=== PATIENT | female | born 1945 | race Caucasian/White ===

== ENCOUNTER 2023-12-20 06:17 | Emergency (ER) | payer MEDICARE, SELFPAY ==
[2023-12-20] VITALS (10 sets, daily range): BP systolic 115–214; BP diastolic 56–98; PULSE 63–90; RESP 12–20; TEMP 36.6–36.7; O2SAT 97–99; BMI 31.8
--- NOTE | 2023-12-20 06:35 | DI.RAD.S_ITS ---
PROCEDURE: XR CHEST 1V INDICATIONS: chest pain TECHNIQUE: One view of the chest was acquired. COMPARISON: None. FINDINGS: Surgical changes and devices: None. Lungs and pleura: Moderate size airspace opacity in right lower lung field is seen. No definite left-sided opacity. No pleural effusions or pneumothorax. Mediastinum: Mediastinal contours appear normal. Heart size is normal. Bones and chest wall: No suspicious bony lesions. Overlying soft tissues appear unremarkable. IMPRESSION: Finding is suggestive of moderate size right lower lobe infiltrate. No pleural effusion or pneumothorax. Dictated by: Patricio Galeano M.D. on 12/20/2023 at 8:08 Approved by: Patricio Galeano M.D. on 12/20/2023 at 8:09
[2023-12-20] MEDS: ASPIRIN 81 MG CHEW TAB 324 MG PO (06:43)
[2023-12-20 06:44] LABS: Add Manual Diff / Slide Review NO; Basophils Absolute Auto 100 /uL (0-100); Basophils Percent Auto 0.8 % (0-2); Eosinophils Absolute Auto 700 /uL (0-450); Eosinophils Percent Auto 10.9 % (2-4); Hematocrit 38.1 % (36-46); Hemoglobin 12.6 g/dL (12.0-16.0); Lymphocytes Absolute Auto 1500 /uL (1100-4500); Lymphocytes Percent Auto 22.4 % (25-40); Mean Corpuscular Hemoglobin 27.6 PG (26-34); Mean Corpuscular Volume 83.5 fL (80-100); Monocytes Absolute Auto 800 /uL (0-900); Monocytes Percent Auto 11.5 % (3-14); Neutrophils Absolute Auto 3600 /uL (1500-7000); Neutrophils Percent Auto 54.4 % (50-75); Platelet Count 196 X10^3/uL (150-400); Red Blood Cell Count 4.56 X10^6/uL (4.0-5.2); Red Cell Distribution Width 14.8 % (11.6-14.8); White Blood Cell Count 6.6 X10^3/uL (4.5-11.0)
[2023-12-20 06:47] LABS: Prothrombin Time 11.7 SECONDS (9.4-12.5)
[2023-12-20 06:50] LABS: PTT Partial Thromboplastin Tim 33 SECONDS (25.1-36.5)
[2023-12-20 06:59] LABS: Alanine Aminotransferase 16 IU/L (<35); Albumin 4.9 g/dL (3.5-5.0); Albumin Globulin Ratio 1.4 (1.0-2.8); Alkaline Phosphatase 64 U/L (38-126); Aspartate Aminotransferase 29 IU/L (14-36); BUN Creatinine Ratio 25.5 (6-22); Bilirubin Total 0.5 mg/dL (0.2-1.3); Blood Urea Nitrogen 26 mg/dL (7-17); Calcium 9.5 mg/dL (8.4-10.2); Carbon Dioxide 27 mmol/L (22-32); Chloride 103 mmol/L (98-107); Creatine Kinase 172 U/L (30-135); Estimated Glomerular Filt Rate 57 mL/min (>60); Globulin 3.6 g/dL (1.7-4.1); Glucose 110 mg/dL (80-110); HEMOLYSIS < 15 (0-50); Lipase 70 U/L (23-300); Magnesium 2.1 mg/dL (1.6-2.3); Potassium 3.5 mmol/L (3.4-5.1); Sodium 139 mmol/L (137-145); Total Protein 8.5 g/dL (6.3-8.2)
[2023-12-20 07:10] LABS: Troponin I < 0.012 ng/mL (0.01-0.034)
--- NOTE | 2023-12-20 07:17 | PC.NURSE ---
Pt reports feeling limp in arms after digesting food. Pt reports having 13 heart stents. Pt states she has taken omeprezole etc in the past to help with digestive issues. Pt reports having her gallbladder removed to help with her symptoms. 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 Pt reports the last time she was seen by GI and was fully evaluated was 3-4 years ago.
--- NOTE | 2023-12-20 07:19 | ED.CHESTPAIN ---
HPI - Chest Pain General Chief Complaint: Chest Pain Stated Complaint: chest pain Time Seen by Provider: 12/20/23 07:00 Source: patient Mode of arrival: Ambulatory History of Present Illness HPI narrative: Patient is a 78-year-old female. A known history of coronary artery disease. Has had multiple stents. States she has had a stress test in the past but that was many years ago. She states she has seen a Cardiology in the past but has not seen 1 currently. She states she has not interested in seeking any more treatment for her heart. She states ?when I I ? she states she was not interested in any further stress test. She is here because for the past several months/years she has had occasional chest discomfort approximately 1-1-1/2 hours after eating. She states that this chest discomfort has become more intense and lasting longer. She has to sleep sitting up at night because of the discomfort. States she does not eat all day because she was afraid that is going to hurt and then eats in the evening. When it does hurt it is a pressure in the middle of her chest. Does radiate down both of her arms. No shortness of breath. At the time of my evaluation she was not having discomfort. Related Data Home Medications Medication Instructions Recorded Confirmed albuterol sulfate 90 mcg/actuation 2 puff inhalation Q4H PRN 12/20/23 12/20/23 aerosol inhaler Shortness Of Breath clopidogrel 75 mg tablet 75 mg PO DAILY 12/20/23 12/20/23 rosuvastatin 40 mg tablet 40 mg PO ONCE PM 12/20/23 12/20/23 telmisartan 40 mg tablet 40 mg PO DAILY 12/20/23 12/20/23 triamterene 37.5 1 cap PO DAILY 12/20/23 12/20/23 mg-hydrochlorothiazide 25 mg capsule Allergies Allergy/AdvReac Type Severity Reaction Status Date / Time epinephrine Allergy Intermediate Hives Verified 12/20/23 06:28 Review of Systems Constitutional Constitutional: Reports system reviewed and no additional complaints, except as documented Cardiovascular Cardiovascular: Reports system reviewed and no additional complaints, except as documented Respiratory Respiratory: Reports system reviewed and no additional complaints, except as documented Gastrointestinal Gastrointestinal: Reports system reviewed and no additional complaints, except as documented Exam Initial Vital Signs Initial Vital Signs: Vital Signs Temperature 98.1 F 12/20/23 06:29 Pulse Rate 90 04/25/24 06:29 Respiratory Rate 20 12/20/23 06:29 Blood Pressure 214/98 H 12/20/23 06:29 Pulse Oximetry 98 12/20/23 06:29 Oxygen Delivery Method Room Air 12/20/23 06:29 Const General: cooperative, comfortable and No ill appearing HENMT Head: normal to inspection and normocephalic Resp Effort & Inspection: normal respiratory effort Auscultation: clear to auscultation bilaterally Cardio Rate: regular rate Rhythm: regular rhythm GI Inspection: normal to inspection and non-distended Skin General: no rashes or lesions noted Neuro General: patient alert, patient awake and moves all extremities Extrem General: capillary refill normal Course Orders Ordered: ED Orders 12/20/23 06:32 Complete Blood Count AUTO DIFF Stat PTT Partial Thromboplastin Neftaly Stat Prothrombin Time INR Stat 12/20/23 06:35 XR chest 1V Stat Comprehensive Metabolic Panel Stat Lipase Stat Magnesium Stat Troponin & CK Cardiac Panel Stat EKG-12 Lead Stat 12/20/23 08:26 Troponin & CK Cardiac Panel Stat Discontinued Medications Aspirin (Aspirin 81 Mg Chew Tab) 324 mg PO NOW ONE Stop: 12/20/23 06:36 Last Admin: 12/20/23 06:43 Dose: 324 mg Documented By: CHINTAN Aspirin (Aspirin 81 Mg Chew Tab) 324 mg PO NOW ONE Stop: 12/20/23 06:37 Last Admin: 12/20/23 06:41 Dose: Not Given Documented By: Vital Signs Vital signs: Vital Signs - 8 hr 12/20/23 06:29 Temperature 98.1 F Pulse Rate 90 Respiratory Rate 20 Blood Pressure 214/98 H Pulse Oximetry 98 Oxygen Delivery Method Room Air MDM - Chest Pain Lab Data Attestation: I reviewed the patient's lab results. 12/20/23 06:32 12/20/23 06:35 Labs: Lab Results 12/20/23 12/20/23 12/20/23 Range/Units 06:32 06:35 08:26 WBC 6.6 (4.5-11.0) X10^3/uL RBC 4.56 (4.0-5.2) X10^6/uL Hgb 12.6 (12.0-16.0) g/dL Hct 38.1 (36-46) % MCV 83.5 (80-100) fL MCH 27.6 (26-34) PG MCHC 33.0 (30-36) % RDW 14.8 (11.6-14.8) % Plt Count 196 (150-400) X10^3/uL Neut % (Auto) 54.4 (50-75) % Lymph % (Auto) 22.4 L (25-40) % [place] % (Auto) 11.5 (3-14) % Eos % (Auto) 10.9 H (2-4) % Baso % (Auto) 0.8 (0-2) % Neut # (Auto) 3600 (2331-1366) /uL Lymph # (Auto) 1500 (6741-4749) /uL [place] # (Auto) 800 (0-900) /uL Eos # (Auto) 700 H (0-450) /uL Baso # (Auto) 100 (0-100) /uL PT 11.7 (9.4-12.5) SECONDS INR 1.0 (0.9-1.3) APTT 33 (25.1-36.5) SECONDS Sodium Cancelled 139 Potassium Cancelled 3.5 Chloride Cancelled 103 Carbon Dioxide Cancelled 27 BUN Cancelled 26 H Creatinine Cancelled 1.02 Estimated GFR Cancelled 57 L BUN/Creatinine Ratio Cancelled 25.5 H Glucose Cancelled 110 Calcium Cancelled 9.5 Magnesium 2.1 (1.6-2.3) mg/dL Total Bilirubin Cancelled 0.5 AST Cancelled 29 ALT Cancelled 16 Alkaline Phosphatase Cancelled 64 Total Creatine Kinase Cancelled 172 H 154 H Troponin I Cancelled < 0.012 < 0.012 Total Protein Cancelled 8.5 H Albumin Cancelled 4.9 Globulin Cancelled 3.6 Albumin/Globulin Ratio Cancelled 1.4 Lipase Cancelled 70 Imaging Data Chest x-ray: Radiologist's Impression: PROCEDURE: XR CHEST 1V INDICATIONS: chest pain TECHNIQUE: One view of the chest was acquired. COMPARISON: None. FINDINGS: Surgical changes and devices: None. Lungs and pleura: Moderate size airspace opacity in right lower lung field is seen. No definite left-sided opacity. No pleural effusions or pneumothorax. Mediastinum: Mediastinal contours appear normal. Heart size is normal. Bones and chest wall: No suspicious bony lesions. Overlying soft tissues appear unremarkable. IMPRESSION: Finding is suggestive of moderate size right lower lobe infiltrate. No pleural effusion or pneumothorax. ECG Data Attestation: I personally reviewed and interpreted this ECG as follows: Interpretation: Sinus rhythm Ventricular rate 80 Normal axis Normal QRS Nonspecific ST T wave changes MDM Narrative Medical decision making narrative: Patient has had 2- troponins. She has had discomfort like this off and on for years now. It seems to be associated with eating. I suspect that this is more of a GI source rather than a cardiac source. Patient states she actually does not want anymore workup of her heart to include stress testing or other invasive procedures. Recommended that the patient start on a proton pump inhibitor. She may need to see General surgery for evaluation of an upper endoscopy. Will discharge patient home with return precautions. She expressed understanding and agreement. Discharge Plan Departure Patient Disposition: Home Clinical Impression: Atypical chest pain Instructions: DI for Atypical Chest Pain Activity Restrictions/Additional Instructions: I do recommend that you start taking a class of medicine called a proton pump inhibitor. Examples of these include omeprazole/esomeprazole. I also recommend that you contact the General surgery Department of the number provided below. Return to the emergency department for new symptoms. Prescriptions: No Action clopidogrel 75 mg tablet 75 mg PO DAILY albuterol sulfate 90 mcg/actuation HFA aerosol inhaler 2 puff inhalation Q4H PRN (Reason: Shortness Of Breath) rosuvastatin 40 mg tablet 40 mg PO ONCE PM telmisartan 40 mg tablet 40 mg PO DAILY triamterene-hydrochlorothiazid 37.5-25 mg capsule 1 cap PO DAILY Referrals: Mari Sánchez ARNP [Primary Care Provider] - Sanjay Dickens MD [Physician] - Stand Alone Forms: Patient Portal/API
[2023-12-20 08:45] LABS: Creatine Kinase 154 U/L (30-135)
[2023-12-20 08:58] LABS: Troponin I < 0.012 ng/mL (0.01-0.034)
== END 2023-12-20 09:38 | disposition home or self-care (01) ==
PROVIDERS: Emergency Medicine; Emergency Provider Emergency Medicine; PCP Nurse Practitioner
DX: R07.89 Other chest pain (principal)
CPT/HCPCS: 71045; 80053; 82550; 83690; 83735; 84484; 85025; 85610; 85730; 93005; 99283; 99284

== ENCOUNTER 2024-01-22 19:43 | Emergency (ER) | payer MEDICARE, SELFPAY ==
[2024-01-22 19:52] VITALS: BP 164/77; PULSE 65; RESP 18; TEMP 37; O2SAT 97; BMI 30.8
--- NOTE | 2024-01-22 19:52 | DI.US.S_ITS ---
PROCEDURE: US ARTERIAL DUPLEX LE LT INDICATIONS: bleeding from cath site L groin TECHNIQUE: Color and pulse Doppler interrogation was performed of the right groin , with image documentation. COMPARISON: None. FINDINGS: Examination of right inguinal region at left femoral catheterize insertion site shows no hematoma or pseudoaneurysm formation. No solid mass. Soft tissue edema is seen. IMPRESSION: No large hematoma or pseudoaneurysm is seen in left inguinal region. Dictated by: Patricio Galeano M.D. on 01/22/2024 at 21:54 Approved by: Patricio Galeano M.D. on 01/22/2024 at 21:56
--- NOTE | 2024-01-22 19:56 | ED.GENADULT ---
HPI - General Adult General Chief complaint: Wound/Laceration Stated complaint: Scab popped Bleeding Time Seen by Provider: 01/22/24 19:47 History of Present Illness HPI narrative: 78-year-old female presents for blood noted around her catheterization site. Approximately 1 week ago patient underwent angiography and catheterization with 4 stents placed at [facility]. She states that she was recovering well in sent home. Today she was changing her dressing and noticed blood on the bandage. She became very concerned that the presence of blood and called 911. Patient was on aspirin and Plavix, denies use of other blood thinners Related Data Home Medications Medication Instructions Recorded Confirmed albuterol sulfate 90 mcg/actuation 2 puff inhalation Q4H PRN 12/20/23 12/20/23 aerosol inhaler Shortness Of Breath clopidogrel 75 mg tablet 75 mg PO DAILY 12/20/23 12/20/23 rosuvastatin 40 mg tablet 40 mg PO ONCE PM 12/20/23 12/20/23 telmisartan 40 mg tablet 40 mg PO DAILY 12/20/23 12/20/23 triamterene 37.5 1 cap PO DAILY 12/20/23 12/20/23 mg-hydrochlorothiazide 25 mg capsule Allergies Allergy/AdvReac Type Severity Reaction Status Date / Time epinephrine Allergy Intermediate Hives Verified 12/20/23 06:28 Review of Systems Review of Systems Narrative: See HPI Patient History Social History Smoking Status: Never smoker Exam Initial Vital Signs Initial Vital Signs: Vital Signs Temperature 98.6 F 01/22/24 19:52 Pulse Rate 65 01/22/24 19:52 Respiratory Rate 18 01/22/24 19:52 Blood Pressure 164/77 H 01/22/24 19:52 Pulse Oximetry 97 01/22/24 19:52 Oxygen Delivery Method Room Air 01/22/24 19:52 Const: Awake, alert, no acute distress, nontoxic appearing Cardiac: regular rate, regular rhythm RESP: unlabored, clear bilaterally, no wheezing MSK: no palpable swelling, no bruit L thigh Skin: scant dried blood at L femoral catheterization site. No active bleeding Neuro: AO x3, CN II-XII grossly intact, moves all extremities Course Orders Ordered: ED Orders 01/22/24 19:52 US arterial duplex LE LT Stat Vital Signs Vital signs: Vital Signs - 8 hr 01/22/24 20:27 01/22/24 20:30 01/22/24 20:41 Pulse Rate 65 66 Respiratory Rate 20 Blood Pressure 139/63 Pulse Oximetry 97 97 Oxygen Delivery Method Room Air Room Air 01/22/24 20:41 01/22/24 21:55 01/22/24 22:04 Pulse Rate 78 72 Respiratory Rate 18 16 Blood Pressure 137/60 Pulse Oximetry 97 96 97 Oxygen Delivery Method Room Air Room Air Medical Decision Making Imaging Data US - DVT: Radiologist's Impression: PROCEDURE: US ARTERIAL DUPLEX LE LT INDICATIONS: bleeding from cath site L groin TECHNIQUE: Color and pulse Doppler interrogation was performed of the right groin , with image documentation. COMPARISON: None. FINDINGS: Examination of right inguinal region at left femoral catheterize insertion site shows no hematoma or pseudoaneurysm formation. No solid mass. Soft tissue edema is seen. IMPRESSION: No large hematoma or pseudoaneurysm is seen in left inguinal region. Dictated by: Patricio Galeano M.D. on 01/22/2024 at 21:54 Approved by: Patricio Galeano M.D. on 01/22/2024 at 21:56 MDM Narrative Additional Information: Bleeding from previous cardiac catheterization site in left groin. Band-Aid removed, there is scant dried blood noted, but no active bleeding. Patient may have disrupted a scab. Ultrasound ordered to ensure that there was no pseudoaneurysm present. Ultrasound negative for hematoma or pseudoaneurysm. Dressing applied. Wound care instructions discussed with the patient. Cardiology follow up instructed. Discharge Plan Departure Patient Disposition: Home Clinical Impression: Bleeding Instructions: DI for Puncture Wound Activity Restrictions/Additional Instructions: Continue to keep your wound clean and dry. You may replace the bandage daily. 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 Your ultrasound did not show any signs of swelling or abnormal blood collection. Prescriptions: No Action clopidogrel 75 mg tablet 75 mg PO DAILY albuterol sulfate 90 mcg/actuation HFA aerosol inhaler 2 puff inhalation Q4H PRN (Reason: Shortness Of Breath) rosuvastatin 40 mg tablet 40 mg PO ONCE PM telmisartan 40 mg tablet 40 mg PO DAILY triamterene-hydrochlorothiazid 37.5-25 mg capsule 1 cap PO DAILY Referrals: Sánchez,Mari S, REAL ESTATE LEASING MANAGER [Primary Care Provider] - Stand Alone Forms: Patient Portal/API
[2024-01-22 20:27] VITALS: PULSE 65; O2SAT 97
[2024-01-22 20:30] VITALS: PULSE 66; RESP 20; O2SAT 97
[2024-01-22 20:41] VITALS: BP 139/63; PULSE 78; RESP 18; O2SAT 97
[2024-01-22 21:55] VITALS: O2SAT 96
[2024-01-22 22:04] VITALS: BP 137/60; PULSE 72; RESP 16; O2SAT 97
== END 2024-01-22 22:05 | disposition home or self-care (01) ==
PROVIDERS: Emergency Provider Emergency Medicine; PCP Nurse Practitioner
DX: L76.22 Postprocedural hemorrhage of skin and subcutaneous tissue following other procedure (principal)
CPT/HCPCS: 93926; 99281; 99282

== ENCOUNTER 2024-01-29 13:04 | Emergency (ER) | payer MEDICARE, SELFPAY ==
[2024-01-29] VITALS (18 sets, daily range): BP systolic 143–219; BP diastolic 65–93; PULSE 61–88; RESP 16–33; TEMP 36.6–37.2; O2SAT 91–100; BMI 33.0
--- NOTE | 2024-01-29 13:11 | DI.RAD.S_ITS ---
PROCEDURE: XR CHEST 1V INDICATIONS: Shortness of breath TECHNIQUE: One view of the chest was acquired. COMPARISON: [facility], CT, CT ANGIO AORTA RUNOFF, 02/14/2023, 13:29. [facility], CR, XR CHEST 1V, 12/20/2023, 7:17. FINDINGS: Surgical changes and devices: None. Lungs and pleura: Low lung volumes. 5.2 cm right mid lung. No pleural effusions. Mild right lower lung opacity. Mediastinum: Normal heart size Bones and chest wall: Degenerative changes. IMPRESSION: Right mid lung 5.2 cm mass. Recommend chest CT. Right lower lobe opacity may be additional infection/inflammation versus atelectasis. Dictated by: Juanjo Peñaloza M.D. on 01/29/2024 at 14:33 Approved by: Juanjo Peñaloza M.D. on 01/29/2024 at 14:36
[2024-01-29 13:43] LABS: Add Manual Diff / Slide Review NO; Basophils Absolute Auto 100 /uL (0-100); Basophils Percent Auto 0.9 % (0-2); Eosinophils Absolute Auto 1200 /uL (0-450); Hematocrit 33.8 % (36-46); Lymphocytes Absolute Auto 1100 /uL (1100-4500); Lymphocytes Percent Auto 11.2 % (25-40); Mean Corpuscular HGB Conc 32.5 % (30-36); Mean Corpuscular Hemoglobin 27.6 PG (26-34); Mean Corpuscular Volume 84.9 fL (80-100); Monocytes Absolute Auto 800 /uL (0-900); Monocytes Percent Auto 8.1 % (3-14); Neutrophils Absolute Auto 6700 /uL (1500-7000); Neutrophils Percent Auto 67.8 % (50-75); Platelet Count 227 X10^3/uL (150-400); Red Blood Cell Count 3.98 X10^6/uL (4.0-5.2); Red Cell Distribution Width 14.9 % (11.6-14.8); White Blood Cell Count 9.9 X10^3/uL (4.5-11.0)
[2024-01-29 13:54] LABS: INR 1.2 (0.9-1.3); Prothrombin Time 13.4 SECONDS (9.4-12.5)
--- NOTE | 2024-01-29 14:08 | ED.SOB ---
HPI - SOB/Dyspnea General Chief Complaint: Shortness of Breath/Dyspnea Stated Complaint: SOB Time Seen by Provider: 01/29/24 13:34 Source: patient Mode of arrival: Ambulatory History of Present Illness HPI Narrative: 78-year-old female with history of CAD, recent non-STEMI last month, was advised to have CABG which was declined, underwent high risk PCI by her report x4 vessels done by Dr. Crump at [facility], was discharged on 01/20/2024, has felt some shortness of breath persisting since that time, no cough, no fevers chills. Denies chest discomfort, taking same clopidogrel anticoagulant, denies pain to either leg, slight swelling swelling to both legs. No history of known blood clots to legs or lungs. No known exposure to persons with known COVID or influenza. Related Data Home Medications Medication Instructions Recorded Confirmed aspirin 81 mg tablet,delayed 81 mg PO DAILY 01/29/24 01/29/24 release carvedilol 6.25 mg tablet 6.25 mg PO BID 01/29/24 01/29/24 clopidogrel 75 mg tablet 75 mg PO DAILY 01/29/24 01/29/24 lutein 25 mg-zeaxanthin 5 mg 1 cap PO DAILY 01/29/24 01/29/24 capsule rosuvastatin 40 mg tablet 40 mg PO ONCE PM 01/29/24 01/29/24 telmisartan 40 mg tablet 40 mg PO DAILY 01/29/24 01/29/24 triamterene 37.5 1 cap PO DAILY 01/29/24 01/29/24 mg-hydrochlorothiazide 25 mg capsule Previous Rx's Medication Instructions Recorded furosemide 20 mg tablet (Lasix) 20 mg PO DAILY #5 tabs 01/29/24 Allergies Allergy/AdvReac Type Severity Reaction Status Date / Time epinephrine Allergy Intermediate Hives Verified 01/29/24 13:11 Review of Systems Review of Systems Narrative: As per HPI Patient History Social History Smoking Status: Never smoker Smoking Status: Never smoker Substance Use Type: does not use Exam Narrative Exam Narrative: GENERAL: Well-developed patient, in mild distress. HEAD: Atraumatic. Normocephalic. EYES: Pupils equal round and reactive. Extraocular motions intact. No scleral icterus. No injection or drainage. ENT: Nose without bleeding, purulent drainage. Throat without erythema, tonsillar hypertrophy or exudate. Airway patent. NECK: Trachea midline. Non tender CARDIOVASCULAR: Regular rate and rhythm without murmurs, gallops, or rubs. RESPIRATORY: Clear to auscultation. Breath sounds equal bilaterally. No wheezes, rales, or rhonchi. GASTROINTESTINAL: Abdomen soft, non-tender, nondistended. EXTREMITIES: No edema or joint tenderness. BACK: Nontender without deformity or crepitance. No flank tenderness. NEURO: AOx3. No gross motor defect, no facial droop, has clear speech. SKIN: No rash or erythema of visible areas Initial Vital Signs Initial Vital Signs: Vital Signs Temperature 97.8 F 01/29/24 13:07 Pulse Rate 71 01/29/24 13:07 Respiratory Rate 20 01/29/24 13:07 Blood Pressure 185/79 H 01/29/24 13:07 Pulse Oximetry 97 01/29/24 13:07 Oxygen Delivery Method Room Air 01/29/24 13:07 Course Orders Ordered: ED Orders 01/29/24 13:11 XR chest 1V Stat EKG-12 Lead Stat Measure peak expiratory flow ONCE RT Consult Eval and Treat NOW 01/29/24 13:32 Complete Blood Count AUTO DIFF Stat Comprehensive Metabolic Panel Stat Lactate (Lactic Acid) Stat NT-proBNP (BNP-Adult 18+) Stat Prothrombin Time INR Stat Troponin I Stat 01/29/24 13:53 Respiratory Panel (Film Array) Stat 01/29/24 15:17 CT angio chest PE protocol Stat 01/29/24 17:28 Trop I [Troponin I] Stat Discontinued Medications Albuterol (Albuterol 2.5 Mg/3 Ml Neb (Adult)) 2.5 mg INH NOW ONE Stop: 01/29/24 14:50 Last Admin: 01/29/24 15:08 Dose: 2.5 mg Documented By: CHAPO Furosemide (Furosemide 40 Mg/4 Ml Vial) 40 mg IV NOW ONE Stop: 01/29/24 15:18 Last Admin: 01/29/24 15:38 Dose: 40 mg Documented By: RL Vital Signs Vital signs: Vital Signs - 8 hr 01/29/24 13:07 01/29/24 13:23 01/29/24 13:30 Temperature 97.8 F Pulse Rate 71 86 67 Respiratory Rate 20 25 H 25 H Blood Pressure 185/79 H Pulse Oximetry 97 97 97 Oxygen Delivery Method Room Air 01/29/24 13:42 01/29/24 13:42 01/29/24 13:45 Temperature Pulse Rate 67 Respiratory Rate 21 Blood Pressure 202/91 H 190/82 H Pulse Oximetry 99 Oxygen Delivery Method 01/29/24 13:45 01/29/24 14:00 01/29/24 14:00 Temperature Pulse Rate 66 65 Respiratory Rate 21 17 Blood Pressure 192/80 H Pulse Oximetry 100 100 Oxygen Delivery Method 01/29/24 14:15 01/29/24 14:15 01/29/24 14:30 Temperature Pulse Rate 67 66 Respiratory Rate 28 H 21 Blood Pressure 199/83 H Pulse Oximetry 96 96 Oxygen Delivery Method 01/29/24 14:31 01/29/24 14:31 01/29/24 14:45 Temperature Pulse Rate 67 Respiratory Rate 23 Blood Pressure 184/74 H 195/79 H Pulse Oximetry 96 Oxygen Delivery Method 01/29/24 14:45 01/29/24 15:00 01/29/24 15:00 Temperature Pulse Rate 67 66 Respiratory Rate 28 H 19 Blood Pressure 178/78 H Pulse Oximetry 95 95 Oxygen Delivery Method 01/29/24 15:15 01/29/24 15:15 01/29/24 17:19 Temperature Pulse Rate 61 88 Respiratory Rate 17 Blood Pressure 219/82 H Pulse Oximetry 100 91 Oxygen Delivery Method 01/29/24 17:21 01/29/24 17:21 01/29/24 17:30 Temperature Pulse Rate 70 69 Respiratory Rate 28 H 28 H Blood Pressure 161/93 H Pulse Oximetry 94 96 Oxygen Delivery Method 01/29/24 17:30 01/29/24 17:45 01/29/24 17:45 Temperature Pulse Rate 68 Respiratory Rate 16 Blood Pressure 143/65 H 152/67 H Pulse Oximetry 97 Oxygen Delivery Method 01/29/24 18:00 01/29/24 18:42 Temperature 98.9 F Pulse Rate 81 Respiratory Rate 33 H Blood Pressure Pulse Oximetry Oxygen Delivery Method MDM - SOB/Dyspnea Lab Data Attestation: I reviewed the patient's lab results. 01/29/24 13:32 01/29/24 13:32 Labs: Lab Results 01/29/24 01/29/24 01/29/24 Range/Units 13:32 13:53 17:28 WBC 9.9 (4.5-11.0) X10^3/uL RBC 3.98 L (4.0-5.2) X10^6/uL Hgb 11.0 L (12.0-16.0) g/dL Hct 33.8 L (36-46) % MCV 84.9 (80-100) fL MCH 27.6 (26-34) PG MCHC 32.5 (30-36) % RDW 14.9 H (11.6-14.8) % Plt Count 227 (150-400) X10^3/uL Neut % (Auto) 67.8 (50-75) % Lymph % (Auto) 11.2 L (25-40) % [place] % (Auto) 8.1 (3-14) % Eos % (Auto) 12.0 H (2-4) % Baso % (Auto) 0.9 (0-2) % Neut # (Auto) 6700 (3677-4313) /uL Lymph # (Auto) 1100 (6647-6513) /uL [place] # (Auto) 800 (0-900) /uL Eos # (Auto) 1200 H (0-450) /uL Baso # (Auto) 100 (0-100) /uL PT 13.4 H (9.4-12.5) SECONDS INR 1.2 (0.9-1.3) Sodium 140 (137-145) mmol/L Potassium 3.9 (3.4-5.1) mmol/L Chloride 105 (98-107) mmol/L Carbon Dioxide 29 (22-32) mmol/L BUN 13 (7-17) mg/dL Creatinine 0.77 (0.52-1.04) mg/dL Estimated GFR > 60 (>60) mL/min BUN/Creatinine Ratio 16.9 (6-22) Glucose 99 (80-110) mg/dL Lactate 1.0 (0.7-2.1) mmol/L Calcium 9.3 (8.4-10.2) mg/dL Total Bilirubin 0.8 (0.2-1.3) mg/dL AST 24 (14-36) IU/L ALT 16 (<35) IU/L Alkaline Phosphatase 67 (38-126) U/L Troponin I 0.019 0.019 (0.01-0.034) ng/mL NT-Pro-B Natriuret Pep 1360 H (<450) pg/mL Total Protein 7.9 (6.3-8.2) g/dL Albumin 4.5 (3.5-5.0) g/dL Globulin 3.4 (1.7-4.1) g/dL Albumin/Globulin Ratio 1.3 (1.0-2.8) Chlamy pneumoniae PCR Not detected (Not Detect) Adenovirus (PCR) Not detected (Not Detect) B.parapertussis DNA PCR Not detected (Not Detecte) Coronavirus OC43 (PCR) Not detected (Not Detect) Coronavirus HKU1 (PCR) Not detected (Not Detect) Coronavirus 229E (PCR) Not detected (Not Detect) SARS-CoV-2 (PCR) Not detected (Not Detecte) Coronavirus NL63 (PCR) Not detected (Not Detect) Human Metapneumovir PCR Not detected (Not Detect) Influenza Type A (PCR) Not detected (Not Detect) Influenza Type B (PCR) Not detected (Not Detect) M. pneumoniae (PCR) Not detected (Not Detect) Parainfluenza 1 (PCR) Not detected (Not Detect) Parainfluenza 2 (PCR) Not detected (Not Detect) Parainfluenza 3 (PCR) Not detected (Not Detect) Parainfluenza 4 (PCR) Not detected (Not Detect) RSV (PCR) Not detected (Not Detect) Entero/Rhino (PCR) Not detected (Not Detect) Urine Dip Bedside Urine Glucose Negative Bedside Urine Bilirubin - Negative Bedside Urine Ketone - Negative Urine Specific [place] 1.015 Bedside Urine Occult Blood - Negative Bedside Urine pH 6.0 Bedside Urine Protein - Negative Bedside Urine Urobilinogen - Negative Bedside Urine Nitrite - Negative Bedside Urine Leukocytes - Negative Esterase Imaging Data CT Angio Chest: Radiologist's Impression: [address] [address] [address] Scan Report Signed Patient: Debi Nuñez MR#: [id number] : 1945 Acct:[id number] Age/Sex: 78 / F Date of Service: 01/29/24 Loc: ED Accession Number: [id number] Procedure: CT angio chest PE protocol Ordering Provider: Syd Mckeon MD PROCEDURE: CT ANGIO CHEST PE PROTOCOL INDICATIONS: dyspnea, recent stents x4 TECHNIQUE: After the administration of intravenous contrast, 2 mm thick sections acquired from the pulmonary apices to the posterior costophrenic angles. 3-dimensional maximum intensity projection (MIP) coronal and sagittal reformats were then acquired through the thorax. For radiation dose reduction, the following was used: automated exposure control, adjustment of mA and/or kV according to patient size. COMPARISON: [facility], CR, XR CHEST 1V, 12/20/2023, 7:17. FINDINGS: Image quality: Diagnostic Lungs and pleura: Mild bilateral effusions. There is scattered mild opacities. Mass in the right middle lobe measuring up to 4.1 cm. On radiography from November, this was also present. Mediastinum, heart, and esophagus: No acute pulmonary embolism. There are coronary calcifications and stents. Mildly enlarged hilar and mediastinal lymph nodes, for example subcarinal node measures 1.4 cm in short axis. Chest wall and thyroid: Unremarkable chest wall thyroid Upper abdomen: Possible renal cysts of varying densities. No gross abnormality otherwise on these arterial phase images. Bones: Degenerative osseous findings. IMPRESSION: No acute pulmonary embolism. Right middle lobe suspicious mass is confirmed on CT. There are mildly enlarged mediastinal and hilar lymph nodes. Consider sampling and/or PET-CT. Small bilateral pleural effusions. Other findings above. Dictated by: Juanjo Peñaloza M.D. on 01/29/2024 at 15:44 Approved by: Juanjo Peñaloza M.D. on 01/29/2024 at 15:49 ECG Data Attestation: I personally reviewed and interpreted this ECG as follows: Interpretation: Normal sinus rhythm with rate of 69, no obvious ST segment elevation or depression changes. SD 178, QRS 78, QTC 435. [facility] Narrative Medical decision making narrative: 78-year-old female status post 4 vessel stenting last month Garret Harrison, now with shortness of breath since discharge on 01/20/2024, was concerned because of shortness a breath was persisting, not particularly worse tonight. Lungs clear, speaks in full sentences, no lower extremity edema, no leg pain or tenderness. Screening EKG without obvious ischemic changes at this time. Initial troponin negative. Chest x-ray unremarkable. Trial of SVN. If GFR favorable consider CTA chest imaging. Troponin 0.019, we will repeat interval study. Creatinine favorable. CTA chest study requested. Respiratory panel negative. Repeat troponin 0.019 unchanged. BNP elevated, patient was given 40 mg IV Lasix, has had more than 1 L out, blood pressure a little lower, feels better. Patient would like to go home. 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 We will give Lasix daily dose for the next few days until that visit. Return precautions discussed. Critical Care Time Critical Care Time Total Critical Care Time: 35 Attestation: The high probability of a clinically significant, sudden or life threatening deterioration of the [cardiopulmonary] system(s) required my full and direct attention, intervention and personal management. The aggregate critical care time was [35] minutes. This time is in addition to time spent performing reported procedures but includes the following: [x] Data Review and interpretation [x] Patient assessment and monitoring of vital signs [x] Documentation [x] Medication orders and management Discharge Plan Departure Patient Disposition: Home Clinical Impression: Dyspnea, Lung mass, Congestive heart failure Instructions: DI for Heart Failure Activity Restrictions/Additional Instructions: Recent cardiac stenting for non ST elevation myocardial infarction, having declined open bypass graft surgery. Some shortness of breath since that procedure, persisted today. EKG and serial blood tests not suggestive of heart attack at this time. BNP blood test elevated, possible fluid overload, might be related to your shortness of breath, IV Lasix dose given, you are able to urinate considerable amount of fluid can felt better. It is possible you might have had some degree of congestive heart failure due to your recent heart attack, and/or be mobilizing IV fluids from that procedure. Take oral Lasix once daily dose for the next few days, prior to your cardiology appointment this Sunday as scheduled. Return to this/nearest emergency department for any change worsening symptoms or any concerns prior Right lung mass also noted, apparently known, seen in the past and on chest x-ray and CT chest scanning noted, further workup as an outpatient for now. Prescriptions: New furosemide [Lasix] 20 mg tablet 20 mg PO DAILY Qty: 5 0RF No Action carvedilol 6.25 mg tablet 6.25 mg PO BID clopidogrel 75 mg tablet 75 mg PO DAILY aspirin [Aspir-81] 81 mg Tablet,Delayed Release (Dr/Ec) 81 mg PO DAILY triamterene-hydrochlorothiazid 37.5-25 mg capsule 1 cap PO DAILY telmisartan 40 mg tablet 40 mg PO DAILY rosuvastatin 40 mg tablet 40 mg PO ONCE PM lutein-zeaxanthin 25-5 mg Capsule 1 cap PO DAILY Referrals: Mari Sánchez ARNP [Primary Care Provider] - Stand Alone Forms: Patient Portal/API
[2024-01-29 14:09] LABS: Alanine Aminotransferase 16 IU/L (<35); Albumin 4.5 g/dL (3.5-5.0); Albumin Globulin Ratio 1.3 (1.0-2.8); Alkaline Phosphatase 67 U/L (38-126); Aspartate Aminotransferase 24 IU/L (14-36); BUN Creatinine Ratio 16.9 (6-22); Bilirubin Total 0.8 mg/dL (0.2-1.3); Blood Urea Nitrogen 13 mg/dL (7-17); Calcium 9.3 mg/dL (8.4-10.2); Carbon Dioxide 29 mmol/L (22-32); Chloride 105 mmol/L (98-107); Estimated Glomerular Filt Rate > 60 mL/min (>60); Globulin 3.4 g/dL (1.7-4.1); Glucose 99 mg/dL (80-110); HEMOLYSIS < 15 (0-50); Potassium 3.9 mmol/L (3.4-5.1); Sodium 140 mmol/L (137-145); Total Protein 7.9 g/dL (6.3-8.2)
[2024-01-29 14:19] LABS: NT-proBNP (BNP-Adult 18+) 1360 pg/mL (<450); Troponin I 0.019 ng/mL (0.01-0.034)
[2024-01-29] MEDS: ALBUTEROL 2.5 MG/3 ML NEB (ADULT) INH (15:08)
[2024-01-29 15:09] LABS: Adenovirus Not Detected (Not Detect); B. parapertussis Not Detected (Not Detecte); Bordetella pertussis Not Detected (Not Detect); Chlamydophila pneumoniae Not Detected (Not Detect); Coronavirus 229E Not Detected (Not Detect); Coronavirus HKU1 Not Detected (Not Detect); Coronavirus NL 63 Not Detected (Not Detect); Coronavirus OC43 Not Detected (Not Detect); Human Metapneumovirus Not Detected (Not Detect); Human Rhinovirus/Enterovirus Not Detected (Not Detect); Influenza A Not Detected (Not Detect); Influenza B Not Detected (Not Detect); Mycoplasma pneumoniae Not Detected (Not Detect); Parainfluenza Virus 1 Not Detected (Not Detect); Parainfluenza Virus 2 Not Detected (Not Detect); Parainfluenza Virus 3 Not Detected (Not Detect); Parainfluenza Virus 4 Not Detected (Not Detect); Respiratory Syncytial Virus Not Detected (Not Detect); SARS- CoV-2 Not Detected (Not Detecte)
--- NOTE | 2024-01-29 15:17 | DI.CT.S_ITS ---
PROCEDURE: CT ANGIO CHEST PE PROTOCOL INDICATIONS: dyspnea, recent stents x4 TECHNIQUE: After the administration of intravenous contrast, 2 mm thick sections acquired from the pulmonary apices to the posterior costophrenic angles. 3-dimensional maximum intensity projection (MIP) coronal and sagittal reformats were then acquired through the thorax. For radiation dose reduction, the following was used: automated exposure control, adjustment of mA and/or kV according to patient size. COMPARISON: [facility], CR, XR CHEST 1V, 12/20/2023, 7:17. FINDINGS: Image quality: Diagnostic Lungs and pleura: Mild bilateral effusions. There is scattered mild opacities. Mass in the right middle lobe measuring up to 4.1 cm. On radiography from November, this was also present. Mediastinum, heart, and esophagus: No acute pulmonary embolism. There are coronary calcifications and stents. Mildly enlarged hilar and mediastinal lymph nodes, for example subcarinal node measures 1.4 cm in short axis. Chest wall and thyroid: Unremarkable chest wall thyroid Upper abdomen: Possible renal cysts of varying densities. No gross abnormality otherwise on these arterial phase images. Bones: Degenerative osseous findings. IMPRESSION: No acute pulmonary embolism. Right middle lobe suspicious mass is confirmed on CT. There are mildly enlarged mediastinal and hilar lymph nodes. Consider sampling and/or PET-CT. Small bilateral pleural effusions. Other findings above. Dictated by: Juanjo Peñaloza M.D. on 01/29/2024 at 15:44 Approved by: Juanjo Peñaloza M.D. on 01/29/2024 at 15:49
[2024-01-29] MEDS: FUROSEMIDE 40 MG/4 ML VIAL IV (15:38)
[2024-01-29 17:59] LABS: Troponin I 0.019 ng/mL (0.01-0.034)
== END 2024-01-29 18:43 | disposition home or self-care (01) ==
PROVIDERS: Emergency Provider Emergency Medicine; PCP Nurse Practitioner
DX: R06.00 Dyspnea, unspecified (principal); I50.9 Heart failure, unspecified; R91.8 Other nonspecific abnormal finding of lung field; Z20.822 Contact with and (suspected) exposure to COVID-19; I25.2 Old myocardial infarction; Z79.01 Long term (current) use of anticoagulants
CPT/HCPCS: 36415; 71045; 71275; 80053; 81003; 83605; 83880; 84484; 85025; 85610; 87633; 93005; 96374; 99285; J1940; J7613; Q9967

== ENCOUNTER 2024-02-10 08:27 | Emergency (ER) | payer MEDICARE, SELFPAY ==
[2024-02-10] VITALS (19 sets, daily range): BP systolic 151–230; BP diastolic 67–91; PULSE 65–77; RESP 16–29; TEMP 36.7; O2SAT 94–98; BMI 31.6
--- NOTE | 2024-02-10 08:39 | EKG_ITS ---
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
--- NOTE | 2024-02-10 08:39 | ED_ITS ---
HPI - SOB/Dyspnea General Chief Complaint: Shortness of Breath/Dyspnea Stated Complaint: sob Time Seen by Provider: 02/10/24 08:27 Source: patient Mode of arrival: Ambulatory Limitations: no limitations History of Present Illness HPI Narrative: 78-year-old female with history of coronary artery disease status post 4-vessel PCI 1 month prior (week of 01/15/24) presents for shortness of breath. Patient states she has felt short of breath since her stenting at [facility]. On 01/29/2024 patient came to the emergency department for shortness of breath and was given a diagnosis of congestive heart failure. She was discharged with Lasix, which she states she has been compliant on since her discharge from the emergency department. At that time she was also noted to have a right middle lobe mass. Patient states that this mass has been followed up by her jukebox route driver at an outside hospital extensively and has been biopsied. 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 Patient states that this morning she took an extra dose of her Lasix to try and get fluid off of her. Reports a minimal amount of left ankle swelling. She states that she has been compliant with her salt and fluid intake restrictions. Related Data Home Medications Medication Instructions Recorded Confirmed aspirin 81 mg tablet,delayed 81 mg PO DAILY 01/29/24 01/29/24 release carvedilol 6.25 mg tablet 6.25 mg PO BID 01/29/24 01/29/24 clopidogrel 75 mg tablet 75 mg PO DAILY 01/29/24 01/29/24 lutein 25 mg-zeaxanthin 5 mg 1 cap PO DAILY 01/29/24 01/29/24 capsule rosuvastatin 40 mg tablet 40 mg PO ONCE PM 01/29/24 01/29/24 telmisartan 40 mg tablet 40 mg PO DAILY 01/29/24 01/29/24 triamterene 37.5 1 cap PO DAILY 01/29/24 01/29/24 mg-hydrochlorothiazide 25 mg capsule Previous Rx's Medication Instructions Recorded furosemide 20 mg tablet (Lasix) 20 mg PO DAILY #5 tabs 01/29/24 lorazepam 0.5 mg tablet 0.5 mg PO DAILY PRN anxiety #10 02/10/24 tabs albuterol sulfate 90 mcg/actuation 2 puff inhalation Q4-6H PRN 02/11/24 aerosol inhaler shortness of breath or wheezing #8.5 grams prednisone 20 mg tablet 40 mg (2 x 20 mg) PO DAILY #10 tabs 02/11/24 Allergies Allergy/AdvReac Type Severity Reaction Status Date / Time epinephrine Allergy Intermediate Hives Verified 02/10/24 08:38 ciprofloxacin AdvReac Verified 02/10/24 08:38 Patient History Social History Smoking Status: Former smoker Smoking Status: Former smoker Substance Use Type: does not use Exam Initial Vital Signs Initial Vital Signs: Vital Signs Temperature 98.1 F 02/10/24 08:33 Pulse Rate 77 02/10/24 08:33 Respiratory Rate 24 02/10/24 08:33 Blood Pressure 230/91 H 02/10/24 08:33 Pulse Oximetry 98 02/10/24 08:33 Oxygen Delivery Method Room Air 02/10/24 08:33 Const: Awake, alert, no acute distress, nontoxic appearing Cardiac: regular rate, regular rhythm RESP: Speaking in complete sentences without dyspnea, expiratory wheezes upper and lower lung duarte GI: Soft, nontender, nondistended, no rebound, no guarding MSK: Atraumatic, full range of motion, pulses equal Skin: Warm, Dry, intact, no rashes Neuro: AO x3, CN II-XII grossly intact, moves all extremities Course Orders Ordered: Discontinued Medications Albuterol/Ipratropium (Albuterol/Ipratropium 3 Ml Ampul) 6 ml INH NOW ONE Stop: 02/10/24 09:27 Last Admin: 02/10/24 09:35 Dose: 6 ml Documented By: SULEIMAN Vital Signs Vital signs: Vital Signs - 8 hr 02/10/24 08:33 02/10/24 08:36 02/10/24 08:37 Temperature 98.1 F Pulse Rate 77 73 Respiratory Rate 24 21 Blood Pressure 230/91 H 230/91 H Pulse Oximetry 98 98 Oxygen Delivery Method Room Air Room Air 02/10/24 09:00 02/10/24 09:01 02/10/24 09:01 Temperature Pulse Rate 67 67 Respiratory Rate 27 H 29 H Blood Pressure 167/68 H Pulse Oximetry 95 95 Oxygen Delivery Method Room Air 02/10/24 09:11 02/10/24 09:11 02/10/24 09:30 Temperature Pulse Rate 69 66 Respiratory Rate 16 18 Blood Pressure 166/71 H Pulse Oximetry 96 95 Oxygen Delivery Method 02/10/24 09:31 02/10/24 09:31 02/10/24 09:35 Temperature Pulse Rate 66 67 Respiratory Rate 20 Blood Pressure 151/70 H Pulse Oximetry 95 96 Oxygen Delivery Method Room Air Room Air 02/10/24 10:00 02/10/24 10:00 02/10/24 10:25 Temperature Pulse Rate 65 77 Respiratory Rate 21 Blood Pressure 165/82 H Pulse Oximetry 94 95 Oxygen Delivery Method 02/10/24 10:39 02/10/24 10:44 02/10/24 10:45 Temperature Pulse Rate 66 66 Respiratory Rate 23 Blood Pressure 180/70 H Pulse Oximetry 94 Oxygen Delivery Method Room Air 02/10/24 10:45 02/10/24 11:00 02/10/24 11:01 Temperature Pulse Rate 66 66 68 Respiratory Rate 20 21 Blood Pressure Pulse Oximetry 97 96 95 Oxygen Delivery Method Room Air 02/10/24 11:01 02/10/24 11:30 02/10/24 12:00 Temperature Pulse Rate 67 70 Respiratory Rate Blood Pressure 155/67 H Pulse Oximetry 95 Oxygen Delivery Method 02/10/24 12:13 02/10/24 12:13 Temperature Pulse Rate 75 Respiratory Rate 22 Blood Pressure 155/67 H Pulse Oximetry 94 Oxygen Delivery Method Room Air MDM - SOB/Dyspnea Differential Diagnosis Differential diagnosis: Likely acute exacerbation of chronic obstructive airways disease, congestive heart failure and community acquired pneumonia Lab Data 02/10/24 08:48 02/10/24 08:48 Labs: Lab Results 02/10/24 Range/Units 08:48 WBC 10.6 (4.5-11.0) X10^3/uL RBC 4.21 (4.0-5.2) X10^6/uL Hgb 11.7 L (12.0-16.0) g/dL Hct 35.1 L (36-46) % MCV 83.3 (80-100) fL MCH 27.7 (26-34) PG MCHC 33.2 (30-36) % RDW 14.9 H (11.6-14.8) % Plt Count 191 (150-400) X10^3/uL Neut % (Auto) 54.1 (50-75) % Lymph % (Auto) 11.5 L (25-40) % [place] % (Auto) 7.8 (3-14) % Eos % (Auto) 26.0 H (2-4) % Baso % (Auto) 0.6 (0-2) % Neut # (Auto) 5800 (2732-2629) /uL Lymph # (Auto) 1200 (9062-1234) /uL [place] # (Auto) 800 (0-900) /uL Eos # (Auto) 2800 H (0-450) /uL Baso # (Auto) 100 (0-100) /uL Sodium 141 (137-145) mmol/L Potassium 3.7 (3.4-5.1) mmol/L Chloride 102 (98-107) mmol/L Carbon Dioxide 29 (22-32) mmol/L BUN 14 (7-17) mg/dL Creatinine 0.91 (0.52-1.04) mg/dL Estimated GFR > 60 (>60) mL/min BUN/Creatinine Ratio 15.4 (6-22) Glucose 117 H (80-110) mg/dL Calcium 9.3 (8.4-10.2) mg/dL Total Bilirubin 0.9 (0.2-1.3) mg/dL AST 24 (14-36) IU/L ALT 13 (<35) IU/L Alkaline Phosphatase 73 (38-126) U/L Total Creatine Kinase 91 (30-135) U/L Troponin I < 0.012 (0.01-0.034) ng/mL NT-Pro-B Natriuret Pep 634 H (<450) pg/mL Total Protein 9.0 H (6.3-8.2) g/dL Albumin 4.8 (3.5-5.0) g/dL Globulin 4.2 H (1.7-4.1) g/dL Albumin/Globulin Ratio 1.1 (1.0-2.8) Urine Dip Bedside Urine Glucose Negative Bedside Urine Bilirubin - Negative Bedside Urine Ketone - Negative Urine Specific [place] 1.010 Bedside Urine Occult Blood - Negative Bedside Urine pH 6.5 Bedside Urine Protein - Negative Bedside Urine Leukocytes - Negative Esterase Imaging Data Chest x-ray: Radiologist's Impression: PROCEDURE: XR CHEST 1V INDICATIONS: dyspnea, hx chf, known lung mass TECHNIQUE: One view of the chest was acquired. COMPARISON: [facility], CT, CT ANGIO CHEST PE PROTOCOL, 01/29/2024, 15:24. [facility], CR, XR CHEST 1 VIEW, 01/14/2024, 7:35. [facility], CR, XR CHEST 1V, 12/20/2023, 7:17. [facility], CR, XR CHEST 1V, 01/29/2024, 13:20. FINDINGS: Surgical changes and devices: None. Lungs and pleura: The known right middle lobe mass is again seen. No significant interstitial prominence can be seen. No infiltrates are seen. No pneumothorax is seen. No large pleural effusion can be seen on this frontal view. Low lung volumes are noted. This causes a crowded appearance to the lung markings and limits evaluation. Mediastinum: Mediastinal contours appear normal. Heart size is normal. Atherosclerotic calcification of the aortic arch is noted. Bones and chest wall: No suspicious bony lesions. Age-appropriate bony degenerative changes are seen. Overlying soft tissues appear unremarkable. IMPRESSION: Low lung volumes, without an acute abnormality seen by plain film. No focal infiltrates or pulmonary interstitial prominence. The heart size is not enlarged. Known right middle lobe mass again seen. Dictated by: Demetri Ellis M.D. on 02/10/2024 at 8:07 Approved by: Demetri Ellis M.D. on 02/10/2024 at 8:09 MDM Narrative Medical decision making narrative: Patient presenting for shortness of breath, recent diagnosis of congestive heart failure. Has been compliant with Lasix and fluids/salt intake. Patient does have trace pitting edema bilateral ankles, expiratory wheezes on pulmonary exam. Denies history of lung disease such as asthma or COPD. Saturating well on room air. Laboratory work is reviewed. WBC count 9.1, hemoglobin 11.4, platelets 173, sodium 138, potassium 3.7, creatinine 0.95, troponin undetectable x2, BNP 609. X-ray shows right-sided lung mass as previously seen, no other significant abnormalities. While in the emergency department patient underwent ambulatory pulse ox that remained 95% or greater, she also stated that she feels like the extra Lasix tablet that she took this morning is already working and her shortness of breath is improved in her ankles are less swollen. Patient informed of all lab and imaging findings, counseled to increase her Lasix for the next week to see if this improves her symptoms and to follow up with her senior corporate recruiter. Patient states that she feels very anxious when she feels short of breath and this causes her symptoms to feel worse. She asked if there was a medication that she could take for her anxiety when the symptoms occur. I prescribed a very short amount of Ativan for these symptoms, cautioned patient that this may cause drowsiness and increased risk of falls. Discharge Plan Departure Patient Disposition: Home Clinical Impression: Dyspnea Instructions: DI for Shortness of Breath Activity Restrictions/Additional Instructions: I recommend increasing her Lasix from 20 mg to 40 mg daily for 1 week to see if this improves her symptoms. I will also prescribe a short course of anxiety medications that you may take if you are feeling anxious and short of breath. Use this medication sparingly as it may cause drowsiness and increased risk of falls. Prescriptions: New lorazepam 0.5 mg tablet 0.5 mg PO DAILY PRN (Reason: anxiety) Qty: 10 0RF No Action carvedilol 6.25 mg tablet 6.25 mg PO BID clopidogrel 75 mg tablet 75 mg PO DAILY aspirin [Aspir-81] 81 mg Tablet,Delayed Release (Dr/Ec) 81 mg PO DAILY triamterene-hydrochlorothiazid 37.5-25 mg capsule 1 cap PO DAILY telmisartan 40 mg tablet 40 mg PO DAILY rosuvastatin 40 mg tablet 40 mg PO ONCE PM lutein-zeaxanthin 25-5 mg Capsule 1 cap PO DAILY furosemide [Lasix] 20 mg tablet 20 mg PO DAILY Qty: 5 0RF prednisone 20 mg tablet 40 mg PO DAILY Qty: 10 0RF albuterol sulfate 90 mcg/actuation HFA aerosol inhaler 2 puff INHALATION Q4-6H PRN (Reason: shortness of breath or wheezing) Qty: 8.5 0RF Referrals: Mari Sánchez ARNP [Primary Care Provider] - Stand Alone Forms: Patient Portal/API
[2024-02-10 09:01] LABS: Add Manual Diff / Slide Review NO; Basophils Absolute Auto 100 /uL (0-100); Basophils Percent Auto 0.6 % (0-2); Eosinophils Absolute Auto 2800 /uL (0-450); Hematocrit 35.1 % (36-46); Hemoglobin 11.7 g/dL (12.0-16.0); Lymphocytes Absolute Auto 1200 /uL (1100-4500); Lymphocytes Percent Auto 11.5 % (25-40); Mean Corpuscular HGB Conc 33.2 % (30-36); Mean Corpuscular Hemoglobin 27.7 PG (26-34); Mean Corpuscular Volume 83.3 fL (80-100); Monocytes Absolute Auto 800 /uL (0-900); Monocytes Percent Auto 7.8 % (3-14); Neutrophils Absolute Auto 5800 /uL (1500-7000); Neutrophils Percent Auto 54.1 % (50-75); Platelet Count 191 X10^3/uL (150-400); Red Blood Cell Count 4.21 X10^6/uL (4.0-5.2); Red Cell Distribution Width 14.9 % (11.6-14.8); White Blood Cell Count 10.6 X10^3/uL (4.5-11.0)
[2024-02-10 09:08] LABS: Creatine Kinase 91 U/L (30-135)
[2024-02-10 09:09] LABS: Alanine Aminotransferase 13 IU/L (<35); Albumin 4.8 g/dL (3.5-5.0); Albumin Globulin Ratio 1.1 (1.0-2.8); Alkaline Phosphatase 73 U/L (38-126); Aspartate Aminotransferase 24 IU/L (14-36); BUN Creatinine Ratio 15.4 (6-22); Bilirubin Total 0.9 mg/dL (0.2-1.3); Blood Urea Nitrogen 14 mg/dL (7-17); Calcium 9.3 mg/dL (8.4-10.2); Carbon Dioxide 29 mmol/L (22-32); Chloride 102 mmol/L (98-107); Estimated Glomerular Filt Rate > 60 mL/min (>60); Globulin 4.2 g/dL (1.7-4.1); Glucose 117 mg/dL (80-110); HEMOLYSIS 31 (0-50); Potassium 3.7 mmol/L (3.4-5.1); Sodium 141 mmol/L (137-145)
[2024-02-10 09:20] LABS: NT-proBNP (BNP-Adult 18+) 634 pg/mL (<450); Troponin I < 0.012 ng/mL (0.01-0.034)
[2024-02-10] MEDS: ALBUTEROL/IPRATROPIUM 3 ML AMPUL 6 ML INH (09:35)
--- NOTE | 2024-02-11 04:41 | EKG_ITS ---
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
== END 2024-02-10 12:23 | disposition home or self-care (01) ==
PROVIDERS: Emergency Provider Emergency Medicine; PCP Nurse Practitioner
DX: R06.00 Dyspnea, unspecified (principal); I50.9 Heart failure, unspecified; R07.9 Chest pain, unspecified; Z79.01 Long term (current) use of anticoagulants
CPT/HCPCS: 36415; 71045; 80053; 81003; 82550; 83880; 84484; 85025; 93005; 99283; 99284

== ENCOUNTER 2024-02-11 01:59 | Emergency (ER) | payer MEDICARE, SELFPAY ==
[2024-02-11] VITALS (16 sets, daily range): BP systolic 133–213; BP diastolic 60–84; PULSE 65–85; RESP 14–26; TEMP 36.7–36.8; O2SAT 94–99
--- NOTE | 2024-02-11 02:12 | ED_ITS ---
HPI - SOB/Dyspnea General Chief Complaint: Upper Respiratory Symptoms Stated Complaint: diff. breathing Time Seen by Provider: 02/11/24 02:07 History of Present Illness HPI Narrative: Patient is a 78-year-old female history of coronary artery disease recent NSTEMI was advised have 4 vessel CABG but underwent high-risk PCI at [facility] presents for the 3rd time to the ER with shortness of breath. She was initially seen on 01/29/2024 diagnosed with congestive heart failure started on Lasix. She returned yesterday again with shortness of breath she took an extra dose of Lasix and received albuterol but says it did not help. Today she reports that she was trying to sleep when she suddenly felt extreme shortness of breath could not breathe called 911 and came here. EMS gave her 1 albuterol which she says did not help but she has a little bit calmer. She denies any sort of fever chills. She reports that she feels a band all across her chest. She says that she is very fatigued since her stents she does sleep all day. She tries to go to the treadmill but she is only done it once. She continues to have episodes of shortness of breath. No fever or chills. Related Data Home Medications Medication Instructions Recorded Confirmed aspirin 81 mg tablet,delayed 81 mg PO DAILY 01/29/24 01/29/24 release carvedilol 6.25 mg tablet 6.25 mg PO BID 01/29/24 01/29/24 clopidogrel 75 mg tablet 75 mg PO DAILY 01/29/24 01/29/24 lutein 25 mg-zeaxanthin 5 mg 1 cap PO DAILY 01/29/24 01/29/24 capsule rosuvastatin 40 mg tablet 40 mg PO ONCE PM 01/29/24 01/29/24 telmisartan 40 mg tablet 40 mg PO DAILY 01/29/24 01/29/24 triamterene 37.5 1 cap PO DAILY 01/29/24 01/29/24 mg-hydrochlorothiazide 25 mg capsule Previous Rx's Medication Instructions Recorded furosemide 20 mg tablet (Lasix) 20 mg PO DAILY #5 tabs 01/29/24 lorazepam 0.5 mg tablet 0.5 mg PO DAILY PRN anxiety #10 02/10/24 tabs albuterol sulfate 90 mcg/actuation 2 puff inhalation Q4-6H PRN 02/11/24 aerosol inhaler shortness of breath or wheezing #8.5 grams prednisone 20 mg tablet 40 mg (2 x 20 mg) PO DAILY #10 tabs 02/11/24 Allergies Allergy/AdvReac Type Severity Reaction Status Date / Time epinephrine Allergy Intermediate Hives Verified 02/10/24 08:38 ciprofloxacin AdvReac Verified 02/10/24 08:38 Patient History Social History Smoking Status: Former smoker Smoking Status: Former smoker Substance Use Type: does not use Exam Initial Vital Signs Initial Vital Signs: Vital Signs Pulse Rate 73 02/11/24 02:01 Pulse Oximetry 94 02/11/24 02:01 GENERAL: Alert 78-year-old female and in no acute distress. HEENT: Head atraumatic,EOMI, pupils reactive, face symmetric, moist mucous membranes CARDIOVASCULAR: Regular rate and rhythm without murmurs, rubs or gallops. RESPIRATORY: Slight wheezing at bases decreased breath sounds able to speak in full sentences no significant shortness of ABDOMEN: Soft, nontender. Normoactive bowel sounds all 4 quadrants. No guarding or rebound. EXTREMITIES: Normal range of motion, no clubbing or edema. Neurovascularly intact NEUROLOGICAL: Alert and oriented x4.Normal gait and speech. SKIN: Warm, dry, no laceration, no petechiae, no rashes or lesions. Course Orders Ordered: ED Orders 02/11/24 02:13 D Dimer Stat 02/11/24 02:14 XR chest 1V Stat Complete Blood Count AUTO DIFF Stat EKG-12 Lead Stat 02/11/24 02:29 CT angio chest PE protocol Stat 02/11/24 02:36 Comprehensive Metabolic Panel Stat Lipase Stat NT-proBNP (BNP-Adult 18+) Stat Procalcitonin Stat Troponin & CK Cardiac Panel Stat 02/11/24 04:30 Troponin & CK Cardiac Panel Stat Discontinued Medications Albuterol (Albuterol 2.5 Mg/3 Ml Neb (Adult)) 2.5 mg INH NOW ONE Stop: 02/11/24 04:57 Last Admin: 02/11/24 05:13 Dose: 2.5 mg Albuterol (Albuterol 2.5 Mg/3 Ml Neb (Adult)) 2.5 mg INH NOW ONE Stop: 02/11/24 05:17 Last Admin: 02/11/24 05:20 Dose: 2.5 mg Methylprednisolone (Methylprednisolone 125 Mg/2 Ml Vial) 125 mg IV NOW ONE Stop: 02/11/24 05:18 Last Admin: 02/11/24 05:26 Dose: Not Given Vital Signs Vital signs: Vital Signs - 8 hr 02/11/24 02:01 02/11/24 02:07 02/11/24 02:07 Temperature Pulse Rate 73 71 Respiratory Rate 20 Blood Pressure 155/70 H Pulse Oximetry 94 96 Oxygen Delivery Method 02/11/24 02:14 02/11/24 02:30 02/11/24 02:31 Temperature 98.0 F Pulse Rate 69 67 66 Respiratory Rate 22 16 18 Blood Pressure 155/70 H 133/60 Pulse Oximetry 96 94 96 Oxygen Delivery Method Room Air 02/11/24 02:31 02/11/24 03:00 02/11/24 03:00 Temperature Pulse Rate 65 68 Respiratory Rate 14 17 Blood Pressure 140/64 Pulse Oximetry 94 94 Oxygen Delivery Method 02/11/24 03:22 02/11/24 03:22 02/11/24 03:30 Temperature Pulse Rate 71 68 Respiratory Rate 18 16 Blood Pressure 159/67 H Pulse Oximetry 96 96 Oxygen Delivery Method 02/11/24 03:30 02/11/24 04:00 02/11/24 04:00 Temperature Pulse Rate 68 Respiratory Rate 15 Blood Pressure 153/67 H 140/63 Pulse Oximetry 95 Oxygen Delivery Method 02/11/24 04:30 02/11/24 04:31 02/11/24 04:31 Temperature Pulse Rate 67 67 66 Respiratory Rate 18 23 24 Blood Pressure 181/75 H Pulse Oximetry 97 98 98 Oxygen Delivery Method Room Air 02/11/24 05:00 02/11/24 05:05 02/11/24 05:30 Temperature Pulse Rate 66 69 Respiratory Rate 25 H 15 Blood Pressure 154/65 H Pulse Oximetry 95 99 Oxygen Delivery Method Room Air Room Air 02/11/24 05:31 02/11/24 05:31 02/11/24 05:32 Temperature Pulse Rate 71 69 Respiratory Rate 26 H 14 Blood Pressure 213/84 H Pulse Oximetry 98 98 Oxygen Delivery Method 02/11/24 05:32 02/11/24 05:49 Temperature 98.2 F Pulse Rate 85 Respiratory Rate 19 Blood Pressure 180/76 H 184/78 H Pulse Oximetry 95 Oxygen Delivery Method Room Air MDM - SOB/Dyspnea Lab Data 02/11/24 02:36 02/11/24 02:36 Labs: Lab Results 02/11/24 02/11/24 Range/Units 02:36 04:40 WBC 9.1 (4.5-11.0) X10^3/uL RBC 4.12 (4.0-5.2) X10^6/uL Hgb 11.4 L (12.0-16.0) g/dL Hct 34.5 L (36-46) % MCV 83.7 (80-100) fL MCH 27.8 (26-34) PG MCHC 33.2 (30-36) % RDW 14.9 H (11.6-14.8) % Plt Count 173 (150-400) X10^3/uL Neut % (Auto) 55.9 (50-75) % Lymph % (Auto) 11.0 L (25-40) % [place] % (Auto) 9.4 (3-14) % Eos % (Auto) 23.0 H (2-4) % Baso % (Auto) 0.7 (0-2) % Neut # (Auto) 5100 (5496-0674) /uL Lymph # (Auto) 1000 L (1430-3973) /uL [place] # (Auto) 900 (0-900) /uL Eos # (Auto) 2100 H (0-450) /uL Baso # (Auto) 100 (0-100) /uL D-Dimer 1665 H (<500) ng/ml Sodium 138 (137-145) mmol/L Potassium 3.7 (3.4-5.1) mmol/L Chloride 103 (98-107) mmol/L Carbon Dioxide 29 (22-32) mmol/L BUN 20 H (7-17) mg/dL Creatinine 0.95 (0.52-1.04) mg/dL Estimated GFR > 60 (>60) mL/min BUN/Creatinine Ratio 21.1 (6-22) Glucose 119 H (80-110) mg/dL Calcium 8.9 (8.4-10.2) mg/dL Total Bilirubin 1.0 (0.2-1.3) mg/dL AST 29 (14-36) IU/L ALT 12 (<35) IU/L Alkaline Phosphatase 59 (38-126) U/L Total Creatine Kinase 90 93 (30-135) U/L Troponin I < 0.012 < 0.012 (0.01-0.034) ng/mL NT-Pro-B Natriuret Pep 609 H (<450) pg/mL Total Protein 8.2 (6.3-8.2) g/dL Albumin 4.4 (3.5-5.0) g/dL Globulin 3.8 (1.7-4.1) g/dL Albumin/Globulin Ratio 1.2 (1.0-2.8) Lipase 47 (23-300) U/L Procalcitonin 0.048 (<0.5) ng/mL Imaging Data Chest x-ray: Radiologist's Impression: Preliminary report right lung mass versus consolidation CT scan - chest: Radiologist's Impression: Right middle lobe mass mediastinal and hilar adenopathy suggestive of malignancy. Scattered ground-glass opacity in both lungs may be represent infectious infiltrates. No pulmonary embolism identified. ECG Data Interpretation: Normal sinus rhythm rate 73 MN interval 166 QRS [address] changes or T- wave inversions EKG 2. Sinus rhythm no ischemia similar to prior MDM Narrative Medical decision making narrative: MDM CC: Shortness of breath Complicating co-morbidities: Coronary artery disease Corroborating data: [ ] Data collected from: [ ] Medical records reviewed: yes Differential considered: Pulmonary embolism, acute coronary artery syndrome congestive heart failure asthma viral syndrome pneumonia Exam documented above, pertinent findings include: Patient does have some mild wheezing but no significant respiratory distress she has not hypoxic. Lab Test results independently reviewed as above. Pertinent findings: WBC 9.1, hemoglobin 11.4, hematocrit 34.5, platelet 173, 1 cover potassium 3.7, chloride 103, carbon dioxide 29, BUN 20, creatinine 0.9, glucose 119 bilirubin 1.0, AST 29, ALT 12, alk-phos 59 troponin negative x2, BNP 609 Independently reviewed EKG as above no ischemia Imaging studies independently reviewed: No pulmonary embolism but right lung mass Consultations: [ ] Treatments: Albuterol Re-evaluations: She actually did have increased air movement and increasing wheezing after albuterol but reports she feels no change. She refused Solu- Medrol Discussion: According to records patient reports that she has had a right lung mass for some time and it has been worked up. I have asked her about this again today she reports that it was biopsied many years ago. She does have mediastinal and hilar lymphadenopathy there is concern for malignancy. I have encouraged her to be re-evaluated however she wants nothing done even if it is a mass. She does have some mild wheezing on exam possible viral illness or reactive airway disease. She was given albuterol prior to arrival which did seem to help she was offered it again when she arrived but declined but ultimately agreed to have another treatment. BNP is similar to previously around 600 no significant evidence of pulmonary edema or peripheral edema no need for increasing Lasix. At this time she has no obvious pneumonia leukocytosis or need for antibiotics. She is 2- troponins EKGs without ischemia. Pulmonary embolism has been ruled out with CT Unclear exactly what is causing her shortness of breath. There is possible anxiety component to this as well. We called a taxi for patient, Discharge Plan Departure Patient Disposition: Home Clinical Impression: Lung mass, Mild reactive airways disease Instructions: DI for Acute Bronchitis Activity Restrictions/Additional Instructions: *You have been diagnosed with you do have a right lung mass and possible bronchitis or reactive airway *What to do: At this time I recommend that you be re-evaluated for your lung mass to make sure that it has not become cancerous. I do recommend that you use your albuterol when you feel short of breath *Continue to take medications as directed Prednisone 40 mg once a day for 5 days Albuterol 1-2 puffs every 4 hours if needed for shortness of breath Furosemide 20 mg once daily as previously prescribed *Follow up with your primary care provider in 2-3 days or call [phone] Please follow-up with your certified orthotist practice manager in regards to medication *Return to ER if you should have increasing shortness of breath or chest [or] any new, worsening or concerning symptoms Prescriptions: New prednisone 20 mg tablet 40 mg PO DAILY Qty: 10 0RF albuterol sulfate 90 mcg/actuation HFA aerosol inhaler 2 puff INHALATION Q4-6H PRN (Reason: shortness of breath or wheezing) Qty: 8.5 0RF No Action carvedilol 6.25 mg tablet 6.25 mg PO BID clopidogrel 75 mg tablet 75 mg PO DAILY aspirin [Aspir-81] 81 mg Tablet,Delayed Release (Dr/Ec) 81 mg PO DAILY triamterene-hydrochlorothiazid 37.5-25 mg capsule 1 cap PO DAILY telmisartan 40 mg tablet 40 mg PO DAILY rosuvastatin 40 mg tablet 40 mg PO ONCE PM lutein-zeaxanthin 25-5 mg Capsule 1 cap PO DAILY furosemide [Lasix] 20 mg tablet 20 mg PO DAILY Qty: 5 0RF lorazepam 0.5 mg tablet 0.5 mg PO DAILY PRN (Reason: anxiety) Qty: 10 0RF Referrals: Mari Sánchez ARNP [Primary Care Provider] - Stand Alone Forms: Patient Portal/API
--- NOTE | 2024-02-11 02:14 | DI.RAD.S_ITS ---
PROCEDURE: XR CHEST 1V INDICATIONS: short of breath TECHNIQUE: One view of the chest was acquired. COMPARISON: [facility], CR, XR CHEST 1V, 02/10/2024, 8:51. [facility], CR, XR CHEST 1V, 01/29/2024, 13:20. FINDINGS: Surgical changes and devices: None. Lungs and pleura: Right lung mass again seen. No new consolidation. Mediastinum: Normal heart size. Coronary stents. Bones and chest wall: Degenerative changes. IMPRESSION: No new consolidation. Right mid lung mass again seen. Agree with prelim report. Dictated by: Juanjo Peñaloza M.D. on 02/11/2024 at 7:54 Approved by: Juanjo Peñaloza M.D. on 02/11/2024 at 7:56
--- NOTE | 2024-02-11 02:14 | EKG_ITS ---
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
--- NOTE | 2024-02-11 02:29 | DI.CT.S_ITS ---
PROCEDURE: CT ANGIO CHEST PE PROTOCOL INDICATIONS: short of breath elevated dimer TECHNIQUE: After the administration of intravenous contrast, 2 mm thick sections acquired from the pulmonary apices to the posterior costophrenic angles. 3-dimensional maximum intensity projection (MIP) coronal and sagittal reformats were then acquired through the thorax. For radiation dose reduction, the following was used: automated exposure control, adjustment of mA and/or kV according to patient size. COMPARISON: , CT, CT ANGIO CHEST PE PROTOCOL, 01/29/2024, 15:24. FINDINGS: Image quality: Diagnostic Lungs and pleura: There are ground-glass opacities scattered in the right lung. A right middle lobe mass is again seen, similar compared to most recent prior imaging, measuring up to 4.1 cm x 4.5 cm. No drainable pleural effusions. Other small nodular opacities are present, attention on follow-up. Mediastinum, heart, and esophagus: No acute pulmonary embolism. There are enlarged mediastinal hilar lymph nodes, for example subcarinal node measures up to 1.6 cm in short axis. Coronary calcifications. Chest wall and thyroid: Thyroid chest wall are unremarkable. Upper abdomen: No gross abnormality on these arterial phase images. Bones: There are degenerative findings. IMPRESSION: No acute pulmonary embolism. Middle lobe mass again seen. Mediastinal and hilar adenopathy. Recommend dedicated oncologic follow-up imaging. Additional ground-glass opacities, in a peripheral distribution, likely infectious/inflammatory. Agree with prelim report. Dictated by: Juanjo Peñaloza M.D. on 02/11/2024 at 7:56 Approved by: Juanjo Peñaloza M.D. on 02/11/2024 at 7:59
[2024-02-11 02:45] LABS: Add Manual Diff / Slide Review NO; Basophils Absolute Auto 100 /uL (0-100); Basophils Percent Auto 0.7 % (0-2); Eosinophils Absolute Auto 2100 /uL (0-450); Hematocrit 34.5 % (36-46); Hemoglobin 11.4 g/dL (12.0-16.0); Lymphocytes Absolute Auto 1000 /uL (1100-4500); Mean Corpuscular HGB Conc 33.2 % (30-36); Mean Corpuscular Hemoglobin 27.8 PG (26-34); Mean Corpuscular Volume 83.7 fL (80-100); Monocytes Absolute Auto 900 /uL (0-900); Monocytes Percent Auto 9.4 % (3-14); Neutrophils Absolute Auto 5100 /uL (1500-7000); Neutrophils Percent Auto 55.9 % (50-75); Platelet Count 173 X10^3/uL (150-400); Red Blood Cell Count 4.12 X10^6/uL (4.0-5.2); Red Cell Distribution Width 14.9 % (11.6-14.8); White Blood Cell Count 9.1 X10^3/uL (4.5-11.0)
[2024-02-11 02:48] LABS: D Dimer 1665 ng/ml (<500)
[2024-02-11 02:52] LABS: Alanine Aminotransferase 12 IU/L (<35); Albumin 4.4 g/dL (3.5-5.0); Albumin Globulin Ratio 1.2 (1.0-2.8); Alkaline Phosphatase 59 U/L (38-126); Aspartate Aminotransferase 29 IU/L (14-36); BUN Creatinine Ratio 21.1 (6-22); Blood Urea Nitrogen 20 mg/dL (7-17); Calcium 8.9 mg/dL (8.4-10.2); Carbon Dioxide 29 mmol/L (22-32); Chloride 103 mmol/L (98-107); Creatine Kinase 90 U/L (30-135); Estimated Glomerular Filt Rate > 60 mL/min (>60); Globulin 3.8 g/dL (1.7-4.1); Glucose 119 mg/dL (80-110); Lipase 47 U/L (23-300); Potassium 3.7 mmol/L (3.4-5.1); Sodium 138 mmol/L (137-145); Total Protein 8.2 g/dL (6.3-8.2)
[2024-02-11 03:00] LABS: HEMOLYSIS 76 (0-50)
[2024-02-11 03:04] LABS: NT-proBNP (BNP-Adult 18+) 609 pg/mL (<450); Troponin I < 0.012 ng/mL (0.01-0.034)
[2024-02-11 03:08] LABS: Procalcitonin 0.048 ng/mL (<0.5)
[2024-02-11 05:01] LABS: Creatine Kinase 93 U/L (30-135)
[2024-02-11] MEDS: ALBUTEROL 2.5 MG/3 ML NEB (ADULT) INH ×2 (05:13→05:20)
[2024-02-11 05:14] LABS: Troponin I < 0.012 ng/mL (0.01-0.034)
--- NOTE | 2024-02-11 05:26 | PC.NURSE ---
Pt sitting up in [facility] receiving neb treatment. Refused solumedrol. Dr Sanon notified.
--- NOTE | 2024-02-11 05:53 | PC.NURSE ---
Wheezing much improved after two albuterol treatments. Wheezing not audible per ascultation.
== END 2024-02-11 05:55 | disposition home or self-care (01) ==
PROVIDERS: Emergency Provider Emergency Medicine; PCP Nurse Practitioner
DX: J45.909 Unspecified asthma, uncomplicated (principal); R91.8 Other nonspecific abnormal finding of lung field; I50.9 Heart failure, unspecified; Z79.01 Long term (current) use of anticoagulants
CPT/HCPCS: 71045; 71275; 80053; 82550; 83690; 83880; 84145; 84484; 85025; 85379; 93005; 94640; 99284; J7613; Q9967

== ENCOUNTER → 2024-09-03 11:11 | Outpatient (CLI) | payer MEDICARE, SELFPAY ==
--- NOTE | 2024-09-03 11:19 | DI.CT.S_ITS ---
PROCEDURE: CT ANGIO ABDOMEN PELVIS INDICATIONS: Mesenteric Ischemia, Chronic TECHNIQUE: After the administration of intravenous contrast, 2.5 mm thick sections acquired from the diaphragm to the symphysis. 10 mm maximum-intensity projection (MIP) reformats were then acquired. For radiation dose reduction, the following was used: automated exposure control. COMPARISON: [facility], CT, CT ANGIO CHEST PE PROTOCOL, 02/11/2024, 3:10. FINDINGS: Image Quality: Diagnostic. Abdominal aorta: Severe atherosclerotic calcification. No aneurysm. Mesenteric arteries: Findings do not support chronic mesenteric ischemia. 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 The YVETTE is grossly patent. Renal arteries: There is a probable severe origin stenosis of the right renal artery. No significant left renal artery stenosis is noted. OTHER: Lower Chest: A known right middle lobe lung mass, which is necrotic, has increased in size. It is present on the most superior image the study, and its largest measurement may not be included on the image. On previous image 83 of series 6 it measured 4.2 cm. It now measures 5.0 cm. Liver: No solid mass. Gallbladder: No radiopaque gallstones or wall thickening. Biliary ducts: No biliary dilation. Pancreas: No ductal dilation. Spleen: Size is within normal limits. Adrenal Glands: No adrenal nodules. Kidneys and Ureters: No hydronephrosis. No solid mass. No complex renal cystic lesion which requires follow up. Stomach and Bowel: Normal colonic caliber, without significant wall thickening. Moderately advanced sigmoid diverticulosis without evidence of acute diverticulitis. Peritoneum: No abnormal intraperitoneal fluid. No free air. Ventral Wall: No hernia. Abdominal Nodes: No retroperitoneal or mesenteric adenopathy by size criteria. Vessels: Aorta and inferior vena cava are normal in size. Dense atherosclerotic calcifications. There may be hemodynamically significant stenosis of both common iliac arteries proximally. PELVIS: Pelvic Organs: Unremarkable. Bladder: Unremarkable. Pelvic Nodes: No enlarged lymph nodes. Miscellaneous: No inguinal hernias are seen. Bones: No aggressive osseous abnormality. IMPRESSION: 1. Interval growth of a large right middle lobe bronchogenic mass. 2. There is no evidence of chronic mesenteric ischemia. 3. No metastatic lesions identified in the abdomen and pelvis. 4. Advanced atherosclerotic disease. 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 Dictated by: Bucky Crockett M.D. on 09/03/2024 at 18:43 Approved by: Bucky Crockett M.D. on 09/03/2024 at 18:50
== END ==
PROVIDERS: PCP Family Medicine; Referring Provider Family Medicine; Visit Provider Family Medicine
DX: I70.0 Atherosclerosis of aorta (principal); I70.1 Atherosclerosis of renal artery; K57.30 Diverticulosis of large intestine without perforation or abscess without bleeding; R91.8 Other nonspecific abnormal finding of lung field; R10.9 Unspecified abdominal pain
CPT/HCPCS: 74174; Q9967

== ENCOUNTER 2024-09-04 00:07 | Emergency (ER) | payer MEDICARE, SELFPAY ==
[2024-09-04] VITALS (41 sets, daily range): BP systolic 124–229; BP diastolic 58–99; PULSE 65–78; RESP 17–27; TEMP 36.6; O2SAT 92–98; BMI 31.8
--- NOTE | 2024-09-04 00:10 | EKG_ITS ---
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
--- NOTE | 2024-09-04 00:10 | DI.RAD.S_ITS ---
PROCEDURE: XR CHEST 1V INDICATIONS: chest pain TECHNIQUE: One view of the chest was acquired. COMPARISON: [facility], CR, XR CHEST 1V, 02/11/2024, 2:18. FINDINGS: Surgical changes and devices: None. Lungs and pleura: Masslike consolidation in right lower lung field is again seen increased in size compared to previous study consistent with patient's known right middle lobe mass. No pleural effusions or pneumothorax. Mediastinum: Mediastinal contours appear normal. Heart size is normal. Bones and chest wall: No suspicious bony lesions. Overlying soft tissues appear unremarkable. IMPRESSION: Interval increase in size of patient's known right middle lobe mass. No new airspace opacity is seen. No pleural effusion or pneumothorax. Dictated by: Patricio Galeano M.D. on 09/04/2024 at 0:38 Approved by: Patricio Galeano M.D. on 09/04/2024 at 0:39
[2024-09-04 00:29] LABS: Add Manual Diff / Slide Review NO; Basophils Absolute Auto 0 /uL (0-100); Basophils Percent Auto 0.1 % (0-2); Eosinophils Absolute Auto 0 /uL (0-450); Hemoglobin 13.5 g/dL (12.0-16.0); Lymphocytes Absolute Auto 1000 /uL (1100-4500); Lymphocytes Percent Auto 9.5 % (25-40); Mean Corpuscular HGB Conc 33.8 % (30-36); Mean Corpuscular Hemoglobin 28.1 PG (26-34); Mean Corpuscular Volume 83.1 fL (80-100); Monocytes Absolute Auto 200 /uL (0-900); Monocytes Percent Auto 2.3 % (3-14); Neutrophils Absolute Auto 9000 /uL (1500-7000); Neutrophils Percent Auto 88.1 % (50-75); Platelet Count 205 X10^3/uL (150-400); Red Blood Cell Count 4.82 X10^6/uL (4.0-5.2); Red Cell Distribution Width 16.4 % (11.6-14.8); White Blood Cell Count 10.2 X10^3/uL (4.5-11.0)
--- NOTE | 2024-09-04 00:33 | ED_ITS ---
HPI - Chest Pain <Eliana Reyes MD - Last Filed: 09/12/24 21:30> General Chief Complaint: Chest Pain Stated Complaint: chest pain Time Seen by Provider: 09/04/24 00:10 Source: patient and EMS Mode of arrival: EMS Limitations: no limitations History of Present Illness HPI narrative: 78-year-old female with history of coronary artery disease status post PCI in December of 2023 (Dr. 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 pain is aching, does not radiate, worse with exertion. States that this is like my last heart attack, but worse. Took ASA prior to EMS arrival. EKG normal sinus rhythm en route without obvious ST abnormalities. Related Data Home Medications Medication Instructions Recorded Confirmed aspirin 81 mg tablet,delayed 81 mg PO DAILY 01/29/24 01/29/24 release carvedilol 6.25 mg tablet 6.25 mg PO BID 01/29/24 01/29/24 clopidogrel 75 mg tablet 75 mg PO DAILY 01/29/24 01/29/24 lutein 25 mg-zeaxanthin 5 mg 1 cap PO DAILY 01/29/24 01/29/24 capsule rosuvastatin 40 mg tablet 40 mg PO ONCE PM 01/29/24 01/29/24 telmisartan 40 mg tablet 40 mg PO DAILY 01/29/24 01/29/24 triamterene 37.5 1 cap PO DAILY 01/29/24 01/29/24 mg-hydrochlorothiazide 25 mg capsule Previous Rx's Medication Instructions Recorded furosemide 20 mg tablet (Lasix) 20 mg PO DAILY #5 tabs 01/29/24 lorazepam 0.5 mg tablet 0.5 mg PO DAILY PRN anxiety #10 02/10/24 tabs albuterol sulfate 90 mcg/actuation 2 puff inhalation Q4-6H PRN 02/11/24 aerosol inhaler shortness of breath or wheezing #8.5 grams prednisone 20 mg tablet 40 mg (2 x 20 mg) PO DAILY #10 tabs 02/11/24 Allergies Allergy/AdvReac Type Severity Reaction Status Date / Time epinephrine Allergy Intermediate Hives Verified 02/10/24 08:38 ciprofloxacin AdvReac Verified 02/10/24 08:38 Patient History <Eliana Reyes MD - Last Filed: 09/12/24 21:30> Social History Smoking Status: Former smoker Smoking Status: Former smoker Exam <Eliana Reyes MD - Last Filed: 09/12/24 21:30> Initial Vital Signs Initial Vital Signs: Vital Signs Pulse Rate 77 09/04/24 00:22 Respiratory Rate 25 H 09/04/24 00:22 Pulse Oximetry 96 09/04/24 00:22 <Eliana Rodriguez DO - Last Filed: 09/04/24 11:28> Initial Vital Signs Initial Vital Signs: Vital Signs Pulse Rate 77 09/04/24 00:22 Respiratory Rate 25 H 09/04/24 00:22 Pulse Oximetry 96 09/04/24 00:22 Course <Eliana Reyes MD - Last Filed: 09/12/24 21:30> Orders Ordered: Discontinued Medications Carvedilol (Carvedilol 3.125 Mg Tablet) 3.125 mg PO NOW ONE Stop: 09/04/24 08:54 Last Admin: 09/04/24 09:34 Dose: 3.125 mg Documented By: RB Heparin Sodium (Porcine) (Heparin 5,000 Unit/Ml Vial) 5,000 unit IV NOW ONE Stop: 09/04/24 06:38 Last Admin: 09/04/24 06:50 Dose: 5,000 unit Documented By: TEJAL Heparin Sodium/Dextrose (Heparin Drip) 25,000 unit in 500 mls @ 19.595 mls/hr IV CONT RUSSELL; Protocol Last Titration: 09/04/24 11:14 Dose: 0 units/kg/hr, 0 mls/hr Documented By: RB Co-signed By: SIMEON Admin: 09/04/24 06:50 Dose: 12 units/kg/hr, 19.595 mls/hr Documented By: TEJAL Co-signed By: LESLIE Isosorbide Mononitrate (Isosorbide Mononitrate Er 30 Mg Tablet) 90 mg PO NOW ONE Stop: 09/04/24 08:54 Last Admin: 09/04/24 09:34 Dose: 90 mg Documented By: RB Metoprolol Succinate (Metoprolol Er 25 Mg Tablet) 25 mg PO NOW ONE Stop: 09/04/24 06:40 Last Admin: 09/04/24 06:57 Dose: Not Given Documented By: TEJAL Morphine Sulfate (Morphine 4 Mg/Ml Inj) 4 mg IV NOW ONE Stop: 09/04/24 00:36 Last Admin: 09/04/24 07:10 Dose: Not Given Documented By: RB Telmisartan 40 Mg 40 mg PO DAILY RUSSELL Last Admin: 09/04/24 09:26 Dose: 40 mg Documented By: RB Non-Formulary Medication (Non-Formulary Medication) 1 each PO . PRN PRN Reason: . Vital Signs Vital signs: Vital Signs - 8 hr 09/04/24 03:30 09/04/24 03:31 09/04/24 03:31 Pulse Rate 67 69 Respiratory Rate 17 19 Blood Pressure 148/67 H Pulse Oximetry 95 94 Oxygen Delivery Method 09/04/24 04:00 09/04/24 04:00 09/04/24 04:30 Pulse Rate 65 Respiratory Rate 18 Blood Pressure 143/63 H 144/67 H Pulse Oximetry 95 Oxygen Delivery Method 09/04/24 04:30 09/04/24 05:00 09/04/24 05:01 Pulse Rate 68 75 71 Respiratory Rate 19 21 19 Blood Pressure Pulse Oximetry 94 97 96 Oxygen Delivery Method 09/04/24 05:01 09/04/24 05:30 09/04/24 05:31 Pulse Rate 65 67 Respiratory Rate 20 20 Blood Pressure 210/85 H Pulse Oximetry 94 94 Oxygen Delivery Method 09/04/24 05:31 09/04/24 06:00 09/04/24 06:00 Pulse Rate 68 Respiratory Rate 18 Blood Pressure 156/65 H 160/72 H Pulse Oximetry 96 Oxygen Delivery Method Room Air 09/04/24 06:30 09/04/24 06:31 09/04/24 06:31 Pulse Rate 65 66 Respiratory Rate 17 19 Blood Pressure 163/74 H Pulse Oximetry 95 95 Oxygen Delivery Method 09/04/24 07:00 09/04/24 07:02 09/04/24 07:02 Pulse Rate 72 76 Respiratory Rate 20 20 Blood Pressure 229/99 H Pulse Oximetry 98 97 Oxygen Delivery Method 09/04/24 07:30 09/04/24 07:31 09/04/24 07:31 Pulse Rate 65 66 Respiratory Rate 17 23 Blood Pressure 161/63 H Pulse Oximetry 93 95 Oxygen Delivery Method 09/04/24 08:00 09/04/24 08:01 09/04/24 08:01 Pulse Rate 69 69 Respiratory Rate 19 20 Blood Pressure 165/70 H Pulse Oximetry 95 95 Oxygen Delivery Method 09/04/24 08:30 09/04/24 08:31 09/04/24 08:31 Pulse Rate 74 73 Respiratory Rate 23 25 H Blood Pressure 195/79 H Pulse Oximetry 98 98 Oxygen Delivery Method 09/04/24 09:00 09/04/24 09:01 09/04/24 09:01 Pulse Rate 73 73 Respiratory Rate 20 26 H Blood Pressure 181/77 H Pulse Oximetry 94 94 Oxygen Delivery Method 09/04/24 09:30 09/04/24 09:31 09/04/24 09:31 Pulse Rate 67 67 Respiratory Rate 25 H 23 Blood Pressure 173/72 H Pulse Oximetry 95 95 Oxygen Delivery Method 09/04/24 09:34 09/04/24 10:00 09/04/24 10:01 Pulse Rate 68 70 70 Respiratory Rate 24 27 H Blood Pressure 173/72 H Pulse Oximetry 95 94 Oxygen Delivery Method 09/04/24 10:01 09/04/24 10:30 09/04/24 10:31 Pulse Rate 66 Respiratory Rate 20 Blood Pressure 179/73 H 124/58 L Pulse Oximetry 94 Oxygen Delivery Method 09/04/24 10:31 Pulse Rate 69 Respiratory Rate 22 Blood Pressure Pulse Oximetry 94 Oxygen Delivery Method <Eliana Rodriguez DO - Last Filed: 09/04/24 11:28> Orders Ordered: Discontinued Medications Carvedilol (Carvedilol 3.125 Mg Tablet) 3.125 mg PO NOW ONE Stop: 09/04/24 08:54 Last Admin: 09/04/24 09:34 Dose: 3.125 mg Documented By: LEON Heparin Sodium (Porcine) (Heparin 5,000 Unit/Ml Vial) 5,000 unit IV NOW ONE Stop: 09/04/24 06:38 Last Admin: 09/04/24 06:50 Dose: 5,000 unit Documented By: TEJAL Heparin Sodium/Dextrose (Heparin Drip) 25,000 unit in 500 mls @ 19.595 mls/hr IV CONT RUSSELL; Protocol Last Titration: 09/04/24 11:14 Dose: 0 units/kg/hr, 0 mls/hr Documented By: LEON Co-signed By: SIMEON Admin: 09/04/24 06:50 Dose: 12 units/kg/hr, 19.595 mls/hr Documented By: TEJAL Co-signed By: LESLIE Isosorbide Mononitrate (Isosorbide Mononitrate Er 30 Mg Tablet) 90 mg PO NOW ONE Stop: 09/04/24 08:54 Last Admin: 09/04/24 09:34 Dose: 90 mg Documented By: LEON Metoprolol Succinate (Metoprolol Er 25 Mg Tablet) 25 mg PO NOW ONE Stop: 09/04/24 06:40 Last Admin: 09/04/24 06:57 Dose: Not Given Documented By: TEJAL Morphine Sulfate (Morphine 4 Mg/Ml Inj) 4 mg IV NOW ONE Stop: 09/04/24 00:36 Last Admin: 09/04/24 07:10 Dose: Not Given Documented By: LEON Telmisartan 40 Mg 40 mg PO DAILY RUSSELL Last Admin: 09/04/24 09:26 Dose: 40 mg Documented By: LEON Non-Formulary Medication (Non-Formulary Medication) 1 each PO . PRN PRN Reason: . Vital Signs Vital signs: Vital Signs - 8 hr 09/04/24 03:30 09/04/24 03:31 09/04/24 03:31 Pulse Rate 67 69 Respiratory Rate 17 19 Blood Pressure 148/67 H Pulse Oximetry 95 94 Oxygen Delivery Method 09/04/24 04:00 09/04/24 04:00 09/04/24 04:30 Pulse Rate 65 Respiratory Rate 18 Blood Pressure 143/63 H 144/67 H Pulse Oximetry 95 Oxygen Delivery Method 09/04/24 04:30 09/04/24 05:00 09/04/24 05:01 Pulse Rate 68 75 71 Respiratory Rate 19 21 19 Blood Pressure Pulse Oximetry 94 97 96 Oxygen Delivery Method 09/04/24 05:01 09/04/24 05:30 09/04/24 05:31 Pulse Rate 65 67 Respiratory Rate 20 20 Blood Pressure 210/85 H Pulse Oximetry 94 94 Oxygen Delivery Method 09/04/24 05:31 09/04/24 06:00 09/04/24 06:00 Pulse Rate 68 Respiratory Rate 18 Blood Pressure 156/65 H 160/72 H Pulse Oximetry 96 Oxygen Delivery Method Room Air 09/04/24 06:30 09/04/24 06:31 09/04/24 06:31 Pulse Rate 65 66 Respiratory Rate 17 19 Blood Pressure 163/74 H Pulse Oximetry 95 95 Oxygen Delivery Method 09/04/24 07:00 09/04/24 07:02 09/04/24 07:02 Pulse Rate 72 76 Respiratory Rate 20 20 Blood Pressure 229/99 H Pulse Oximetry 98 97 Oxygen Delivery Method 09/04/24 07:30 09/04/24 07:31 09/04/24 07:31 Pulse Rate 65 66 Respiratory Rate 17 23 Blood Pressure 161/63 H Pulse Oximetry 93 95 Oxygen Delivery Method 09/04/24 08:00 09/04/24 08:01 09/04/24 08:01 Pulse Rate 69 69 Respiratory Rate 19 20 Blood Pressure 165/70 H Pulse Oximetry 95 95 Oxygen Delivery Method 09/04/24 08:30 09/04/24 08:31 09/04/24 08:31 Pulse Rate 74 73 Respiratory Rate 23 25 H Blood Pressure 195/79 H Pulse Oximetry 98 98 Oxygen Delivery Method 09/04/24 09:00 09/04/24 09:01 09/04/24 09:01 Pulse Rate 73 73 Respiratory Rate 20 26 H Blood Pressure 181/77 H Pulse Oximetry 94 94 Oxygen Delivery Method 09/04/24 09:30 09/04/24 09:31 09/04/24 09:31 Pulse Rate 67 67 Respiratory Rate 25 H 23 Blood Pressure 173/72 H Pulse Oximetry 95 95 Oxygen Delivery Method 09/04/24 09:34 09/04/24 10:00 09/04/24 10:01 Pulse Rate 68 70 70 Respiratory Rate 24 27 H Blood Pressure 173/72 H Pulse Oximetry 95 94 Oxygen Delivery Method 09/04/24 10:01 09/04/24 10:30 09/04/24 10:31 Pulse Rate 66 Respiratory Rate 20 Blood Pressure 179/73 H 124/58 L Pulse Oximetry 94 Oxygen Delivery Method 09/04/24 10:31 Pulse Rate 69 Respiratory Rate 22 Blood Pressure Pulse Oximetry 94 Oxygen Delivery Method MDM - Chest Pain <Eliana Reyes MD - Last Filed: 09/12/24 21:30> Lab Data 09/04/24 00:18 09/04/24 00:46 Labs: Lab Results 09/04/24 09/04/24 09/04/24 Range/Units 00:18 00:46 02:38 WBC 10.2 (4.5-11.0) X10^3/uL RBC 4.82 (4.0-5.2) X10^6/uL Hgb 13.5 (12.0-16.0) g/dL Hct 40.0 (36-46) % MCV 83.1 (80-100) fL MCH 28.1 (26-34) PG MCHC 33.8 (30-36) % RDW 16.4 H (11.6-14.8) % Plt Count 205 (150-400) X10^3/uL Neut % (Auto) 88.1 H (50-75) % Lymph % (Auto) 9.5 L (25-40) % [place] % (Auto) 2.3 L (3-14) % Eos % (Auto) 0.0 L (2-4) % Baso % (Auto) 0.1 (0-2) % Neut # (Auto) 9000 H (3508-4693) /uL Lymph # (Auto) 1000 L (1114-0141) /uL [place] # (Auto) 200 (0-900) /uL Eos # (Auto) 0 (0-450) /uL Baso # (Auto) 0 (0-100) /uL PT 11.1 (9.4-12.5) SECONDS INR 1.0 (0.9-1.3) APTT 28 (25.1-36.5) SECONDS Sodium 137 (137-145) mmol/L Potassium 3.8 (3.4-5.1) mmol/L Chloride 101 (98-107) mmol/L Carbon Dioxide 27 (22-32) mmol/L BUN 26 H (7-17) mg/dL Creatinine 0.93 (0.52-1.04) mg/dL Estimated GFR > 60 (>60) mL/min BUN/Creatinine Ratio 28.0 H (6-22) Glucose 189 H (80-110) mg/dL Calcium 9.5 (8.4-10.2) mg/dL Magnesium 2.2 (1.6-2.3) mg/dL Total Bilirubin 0.6 (0.2-1.3) mg/dL AST 29 (14-36) IU/L ALT 23 (<35) IU/L Alkaline Phosphatase 70 (38-126) U/L Total Creatine Kinase 110 (30-135) U/L Troponin I < 0.012 0.024 (0.01-0.034) ng/mL NT-Pro-B Natriuret Pep 1630 H (<450) pg/mL Total Protein 8.5 H (6.3-8.2) g/dL Albumin 4.8 (3.5-5.0) g/dL Globulin 3.7 (1.7-4.1) g/dL Albumin/Globulin Ratio 1.3 (1.0-2.8) Lipase 43 (23-300) U/L 09/04/24 Range/Units 04:54 WBC (4.5-11.0) X10^3/uL RBC (4.0-5.2) X10^6/uL Hgb (12.0-16.0) g/dL Hct (36-46) % MCV (80-100) fL MCH (26-34) PG MCHC (30-36) % RDW (11.6-14.8) % Plt Count (150-400) X10^3/uL Neut % (Auto) (50-75) % Lymph % (Auto) (25-40) % [place] % (Auto) (3-14) % Eos % (Auto) (2-4) % Baso % (Auto) (0-2) % Neut # (Auto) (8476-8932) /uL Lymph # (Auto) (7760-0272) /uL [place] # (Auto) (0-900) /uL Eos # (Auto) (0-450) /uL Baso # (Auto) (0-100) /uL PT (9.4-12.5) SECONDS INR (0.9-1.3) APTT (25.1-36.5) SECONDS Sodium (137-145) mmol/L Potassium (3.4-5.1) mmol/L Chloride (98-107) mmol/L Carbon Dioxide (22-32) mmol/L BUN (7-17) mg/dL Creatinine (0.52-1.04) mg/dL Estimated GFR (>60) mL/min BUN/Creatinine Ratio (6-22) Glucose (80-110) mg/dL Calcium (8.4-10.2) mg/dL Magnesium (1.6-2.3) mg/dL Total Bilirubin (0.2-1.3) mg/dL AST (14-36) IU/L ALT (<35) IU/L Alkaline Phosphatase (38-126) U/L Total Creatine Kinase (30-135) U/L Troponin I 0.034 (0.01-0.034) ng/mL NT-Pro-B Natriuret Pep (<450) pg/mL Total Protein (6.3-8.2) g/dL Albumin (3.5-5.0) g/dL Globulin (1.7-4.1) g/dL Albumin/Globulin Ratio (1.0-2.8) Lipase (23-300) U/L Imaging Data Chest x-ray: Radiologist's Impression: PROCEDURE: XR CHEST 1V INDICATIONS: chest pain TECHNIQUE: One view of the chest was acquired. COMPARISON: [facility], , XR CHEST 1V, 02/11/2024, 2:18. FINDINGS: Surgical changes and devices: None. Lungs and pleura: Masslike consolidation in right lower lung field is again seen increased in size compared to previous study consistent with patient's known right middle lobe mass. No pleural effusions or pneumothorax. Mediastinum: Mediastinal contours appear normal. Heart size is normal. Bones and chest wall: No suspicious bony lesions. Overlying soft tissues appear unremarkable. IMPRESSION: Interval increase in size of patient's known right middle lobe mass. No new airspace opacity is seen. No pleural effusion or pneumothorax. Dictated by: Patricio Galeano M.D. on 09/04/2024 at 0:38 Approved by: Patricio Galeano M.D. on 09/04/2024 at 0:39 ECG Data Attestation: I personally reviewed and interpreted this ECG as follows: Prior ECG tracings: available for review Interpretation: EKG1: Normal sinus rhythm at 78 beats per minute. Possible T-wave inversions in leads 1, aVL. No STEMI EKG 2: Normal sinus rhythm at 68 beats per minute. Normal IA, similar to previous EKGs obtained in January of 2024 MDM Narrative Medical decision making narrative: Chest pain since 10. History of NSTEMI in the past requiring PCI. EKG with possible changes in I, aVL, however prior EKGs are from 01/2024. Pain free at rest, pain is exacerbated by exertion. She received aspirin prior to arrival. Heart score 5 based o story, risk factors, age. Initial troponin undetectable, however given patient's history plan to draw 2 hour troponin. CXR shows RML mass seems to be growing in size compared to last imaging 01/2024. Patient has told me in past she has been followed by pulmonology for this mass, however this was done at an outside hospital and we have no records of biopsy results or pulm consult. 2 hour troponin has increased from undetectable to 0.024. Patient at rest continues to deny pain, however when getting up to walk to the bathroom and back her blood pressure increases and her chest pain returns. Plan to draw a 3rd troponin and final disposition to be made based on this draw. 4 hour troponin 0.034. Still technically within normal limits, however there is a very slight rise perceivable. Case discussed with Dr. Young of on-call cardiology, who does not recommend transfer at this time. Recommends stress test and echo at our facility. Can consider transfer based on these results. Repeat EKG taken at 0535 consistent with patient's previous EKGs 0638 - Case discussed with Dr. Carmona of cardiology - recommends initiation of heparin, po metoprolol, and will accept patient for telemetry transfer. Pending callback from accepting hospitalist. Nursing staff stated patient refused metoprolol due to it making her feel like I'm going to . Metoprolol held. 0740 -case discussed with Dr. Steven hospitalist at , who accepted patient. <Eliana Rodriguez DO - Last Filed: 09/04/24 11:28> Lab Data Labs: Lab Results 09/04/24 09/04/24 09/04/24 Range/Units 00:18 00:46 02:38 WBC 10.2 (4.5-11.0) X10^3/uL RBC 4.82 (4.0-5.2) X10^6/uL Hgb 13.5 (12.0-16.0) g/dL Hct 40.0 (36-46) % MCV 83.1 (80-100) fL MCH 28.1 (26-34) PG MCHC 33.8 (30-36) % RDW 16.4 H (11.6-14.8) % Plt Count 205 (150-400) X10^3/uL Neut % (Auto) 88.1 H (50-75) % Lymph % (Auto) 9.5 L (25-40) % [place] % (Auto) 2.3 L (3-14) % Eos % (Auto) 0.0 L (2-4) % Baso % (Auto) 0.1 (0-2) % Neut # (Auto) 9000 H (6254-4562) /uL Lymph # (Auto) 1000 L (4452-2570) /uL [place] # (Auto) 200 (0-900) /uL Eos # (Auto) 0 (0-450) /uL Baso # (Auto) 0 (0-100) /uL PT 11.1 (9.4-12.5) SECONDS INR 1.0 (0.9-1.3) APTT 28 (25.1-36.5) SECONDS Sodium 137 (137-145) mmol/L Potassium 3.8 (3.4-5.1) mmol/L Chloride 101 (98-107) mmol/L Carbon Dioxide 27 (22-32) mmol/L BUN 26 H (7-17) mg/dL Creatinine 0.93 (0.52-1.04) mg/dL Estimated GFR > 60 (>60) mL/min BUN/Creatinine Ratio 28.0 H (6-22) Glucose 189 H (80-110) mg/dL Calcium 9.5 (8.4-10.2) mg/dL Magnesium 2.2 (1.6-2.3) mg/dL Total Bilirubin 0.6 (0.2-1.3) mg/dL AST 29 (14-36) IU/L ALT 23 (<35) IU/L Alkaline Phosphatase 70 (38-126) U/L Total Creatine Kinase 110 (30-135) U/L Troponin I < 0.012 0.024 (0.01-0.034) ng/mL NT-Pro-B Natriuret Pep 1630 H (<450) pg/mL Total Protein 8.5 H (6.3-8.2) g/dL Albumin 4.8 (3.5-5.0) g/dL Globulin 3.7 (1.7-4.1) g/dL Albumin/Globulin Ratio 1.3 (1.0-2.8) Lipase 43 (23-300) U/L 09/04/24 Range/Units 04:54 WBC (4.5-11.0) X10^3/uL RBC (4.0-5.2) X10^6/uL Hgb (12.0-16.0) g/dL Hct (36-46) % MCV (80-100) fL MCH (26-34) PG MCHC (30-36) % RDW (11.6-14.8) % Plt Count (150-400) X10^3/uL Neut % (Auto) (50-75) % Lymph % (Auto) (25-40) % [place] % (Auto) (3-14) % Eos % (Auto) (2-4) % Baso % (Auto) (0-2) % Neut # (Auto) (6666-3126) /uL Lymph # (Auto) (5028-8843) /uL [place] # (Auto) (0-900) /uL Eos # (Auto) (0-450) /uL Baso # (Auto) (0-100) /uL PT (9.4-12.5) SECONDS INR (0.9-1.3) APTT (25.1-36.5) SECONDS Sodium (137-145) mmol/L Potassium (3.4-5.1) mmol/L Chloride (98-107) mmol/L Carbon Dioxide (22-32) mmol/L BUN (7-17) mg/dL Creatinine (0.52-1.04) mg/dL Estimated GFR (>60) mL/min BUN/Creatinine Ratio (6-22) Glucose (80-110) mg/dL Calcium (8.4-10.2) mg/dL Magnesium (1.6-2.3) mg/dL Total Bilirubin (0.2-1.3) mg/dL AST (14-36) IU/L ALT (<35) IU/L Alkaline Phosphatase (38-126) U/L Total Creatine Kinase (30-135) U/L Troponin I 0.034 (0.01-0.034) ng/mL NT-Pro-B Natriuret Pep (<450) pg/mL Total Protein (6.3-8.2) g/dL Albumin (3.5-5.0) g/dL Globulin (1.7-4.1) g/dL Albumin/Globulin Ratio (1.0-2.8) Lipase (23-300) U/L ECG Data Interpretation: EKG1: Normal sinus rhythm at 78 beats per minute. Possible T-wave inversions in leads 1, aVL. No STEMI EKG 2: Normal sinus rhythm at 68 beats per minute. Normal IA, similar to previous EKGs obtained in January of 2024 EKG 3: Sinus rhythm premature atrial complexes rate of 68 IA 192 QRS of 94 QTC of [address] depression in 1 and aVL 70 depression in V4 V5 no new elevation appreciated AVR appears similar to prior. MDM Narrative Medical decision making narrative: Chest pain since 10. History of NSTEMI in the past requiring PCI. EKG with possible changes in I, aVL, however prior EKGs are from 01/2024. Pain free at rest, pain is exacerbated by exertion. She received aspirin prior to arrival. Heart score 5 based o story, risk factors, age. Initial troponin undetectable, however given patient's history plan to draw 2 hour troponin. CXR shows RML mass seems to be growing in size compared to last imaging 01/2024. Patient has told me in past she has been followed by pulmonology for this mass, however this was done at an outside hospital and we have no records of biopsy results or pulm consult. 2 hour troponin has increased from undetectable to 0.024. Patient at rest continues to deny pain, however when getting up to walk to the bathroom and back her blood pressure increases and her chest pain returns. Plan to draw a 3rd troponin and final disposition to be made based on this draw. 4 hour troponin 0.034. Still technically within normal limits, however there is a very slight rise perceivable. Case discussed with Dr. Young of on-call cardiology, who does not recommend transfer at this time. Recommends stress test and echo at our facility. Can consider transfer based on these results. Repeat EKG taken at 0535 consistent with patient's previous EKGs 0638 - Case discussed with Dr. Carmona of cardiology - recommends initiation of heparin, po metoprolol, and will accept patient for telemetry transfer. Pending callback from accepting hospitalist. Nursing staff stated patient refused metoprolol due to it making her feel like I'm going to . Metoprolol held. 0740 -case discussed with Dr. Steven hospitalist at , who accepted patient. 09/04/2024 Dr. Rodriguez 0899 patient signed out to myself. Patient is seen and evaluated by myself does have some complaint of chest discomfort. EKG was repeated does show some increased ST depression but no new elevation. Patient states it started about 20 minutes after having some apple juice she states it is resolved now. She was due from some of her morning medications including telmisartan carvedilol, isosorbide so we will order these for the morning. She was currently asymptomatic agreeable to transfer. Discharge Plan Departure Patient Disposition: [facility] Clinical Impression: Chest pain Prescriptions: No Action carvedilol 6.25 mg tablet 6.25 mg PO BID clopidogrel 75 mg tablet 75 mg PO DAILY aspirin [Aspir-81] 81 mg Tablet,Delayed Release (Dr/Ec) 81 mg PO DAILY triamterene-hydrochlorothiazid 37.5-25 mg capsule 1 cap PO DAILY telmisartan 40 mg tablet 40 mg PO DAILY rosuvastatin 40 mg tablet 40 mg PO ONCE PM lutein-zeaxanthin 25-5 mg Capsule 1 cap PO DAILY furosemide [Lasix] 20 mg tablet 20 mg PO DAILY Qty: 5 0RF lorazepam 0.5 mg tablet 0.5 mg PO DAILY PRN (Reason: anxiety) Qty: 10 0RF prednisone 20 mg tablet 40 mg PO DAILY Qty: 10 0RF albuterol sulfate 90 mcg/actuation HFA aerosol inhaler 2 puff INHALATION Q4-6H PRN (Reason: shortness of breath or wheezing) Qty: 8.5 0RF Referrals: Cordell Odell MD [Primary Care Provider] -
--- NOTE | 2024-09-04 00:48 | PC.NURSE ---
Per lab- specimens drawn from EMS line are clotted and need to be redrawn. Straight stick with 21g butterfly needle left posterior forearm for redraw without complications.
--- NOTE | 2024-09-04 00:50 | PC.NURSE ---
Pt states she does not want ordered morphine dose at this time.
[2024-09-04 01:05] LABS: Prothrombin Time 11.1 SECONDS (9.4-12.5)
[2024-09-04 01:08] LABS: PTT Partial Thromboplastin Tim 28 SECONDS (25.1-36.5)
[2024-09-04 01:10] LABS: Alanine Aminotransferase 23 IU/L (<35); Albumin 4.8 g/dL (3.5-5.0); Albumin Globulin Ratio 1.3 (1.0-2.8); Alkaline Phosphatase 70 U/L (38-126); Aspartate Aminotransferase 29 IU/L (14-36); Bilirubin Total 0.6 mg/dL (0.2-1.3); Blood Urea Nitrogen 26 mg/dL (7-17); Calcium 9.5 mg/dL (8.4-10.2); Carbon Dioxide 27 mmol/L (22-32); Chloride 101 mmol/L (98-107); Creatine Kinase 110 U/L (30-135); Estimated Glomerular Filt Rate > 60 mL/min (>60); Globulin 3.7 g/dL (1.7-4.1); Glucose 189 mg/dL (80-110); HEMOLYSIS < 15 (0-50); Lipase 43 U/L (23-300); Magnesium 2.2 mg/dL (1.6-2.3); Potassium 3.8 mmol/L (3.4-5.1); Sodium 137 mmol/L (137-145); Total Protein 8.5 g/dL (6.3-8.2)
[2024-09-04 01:25] LABS: NT-proBNP (BNP-Adult 18+) 1630 pg/mL (<450); Troponin I < 0.012 ng/mL (0.01-0.034)
--- NOTE | 2024-09-04 02:40 | PC.NURSE ---
Repeat troponin drawn from existing IV without difficulty
[2024-09-04 03:13] LABS: Troponin I 0.024 ng/mL (0.01-0.034)
--- NOTE | 2024-09-04 03:13 | PC.NURSE ---
Pt ambulatory to restroom without assistance. Upon returning to exam room pt noted to be SOB with audible wheezing and increased chest pain. Blood pressure elevated. Episode lasting approx 20 minutes.
--- NOTE | 2024-09-04 03:13 | PC.NURSE ---
Patient ambulatory to restroom without difficulty or assistance
--- NOTE | 2024-09-04 03:20 | PC.NURSE ---
Pt states pain increased 5-6/- while walking to and from restroom.
--- NOTE | 2024-09-04 05:00 | PC.NURSE ---
Repeat troponin drawn from existing IV line without difficulty
[2024-09-04 05:21] LABS: Troponin I 0.034 ng/mL (0.01-0.034)
--- NOTE | 2024-09-04 05:38 | EKG_ITS ---
[address] [address] Test Date: 2024-09-04 Pat Name: Debi Nuñez Department: Room: Gender: Female Resident Associate: BHAKTI GHADA : 1945 Requested By: Order Number: [id number] Reading MD: Ernst Moore MD Measurements Intervals [place] Rate: 68 P: 73 AL: 192 QRS: 1 QRSD: 94 T: 65 QT: 452 QTc: 480 Interpretive Statements Sinus rhythm with premature atrial complexes Cannot rule out Anterior infarct , age undetermined Electronically Signed On 09-04-2024 6:57:02 PST by Ernst Moore MD
--- NOTE | 2024-09-04 06:36 | PC.NURSE ---
ORTHOPEDIC TECHNICIAN note: Attempting to transfer patient. Called the following places with the following responses: [facility]: 0549 left message [facility]: 0551 Max, no beds, pushed images and face sheet, on their waitlist. [facility]: 0556 [address], no beds, boarding in the ED, call back in the morning. /[facility]: [address], even if she's accepted today no beds for days. [facility]: 0604 [address], pushed images, will be calling us back.
[2024-09-04] MEDS: HEPARIN 5,000 UNIT/ML VIAL 5000 UNIT IV (06:50)
[2024-09-04] MEDS: HEPARIN DRIP 25,000 UNIT/500 ML IV.SOLN 19.595 UNIT IV (06:50)
--- NOTE | 2024-09-04 08:33 | EKG_ITS ---
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
[2024-09-04] MEDS: Telmisartan 40 MG 40 EACH PO (09:26)
[2024-09-04] MEDS: carvediloL 3.125 MG TABLET PO (09:34)
[2024-09-04] MEDS: ISOSORBIDE MONONITRATE ER 30 MG TABLET 90 MG PO (09:34)
--- NOTE | 2024-09-04 11:01 | PC.NURSE ---
This RN gave verbal report to CARMEN Coats from [facility] and gave this RN the return phone number for this department.
--- NOTE | 2024-09-04 11:11 | PC.NURSE ---
Patient left with heparin drip running with CARMEN Coats from [facility].
--- NOTE | 2024-09-04 11:11 | PC.NURSE ---
This RN gave verbal report to Riya supercharger mechanic nurse at Nurse Rpt: [phone] Ext: [phone] for Kacey Norman.
== END 2024-09-04 11:17 | disposition short-term general hospital (02) ==
PROVIDERS: Emergency Medicine; Emergency Provider Emergency Medicine; PCP Family Medicine
DX: R07.9 Chest pain, unspecified (principal); I25.2 Old myocardial infarction; I25.10 Atherosclerotic heart disease of native coronary artery without angina pectoris
CPT/HCPCS: 36415; 71045; 80053; 82550; 83690; 83735; 83880; 84484; 85025; 85610; 85730; 93005; 93010; 96365; 96366; 96375; 99284; J1644

== ENCOUNTER → 2024-10-10 10:40 | Outpatient (CLI) | payer MEDICARE, SELFPAY ==
--- NOTE | 2024-10-10 10:43 | DI.RAD.S_ITS ---
PROCEDURE: XR CHEST 2V INDICATIONS: HEART FAILURE TECHNIQUE: 2 views of the chest were acquired. COMPARISON: [facility], CR, XR CHEST 1V, 09/04/2024, 0:08. FINDINGS: Surgical changes and devices: None. Lungs and pleura: Interval progression in density overlying anterior lower right lung zone. New 1.4 cm density overlies the lateral left mid to lower lung zone. No pleural effusions or pneumothorax. Mediastinum: Mediastinal contours are normal. Heart size is normal. Atherosclerotic vascular calcifications are present within the aortic arch. Bones and chest wall: No suspicious bony abnormalities. Soft tissues appear unremarkable. IMPRESSION: Progressive anterior inferior right lung zone pulmonary density and new focal density within the mid to lower left lung zone suggestive of pulmonary nodules and/or masses. Dictated by: Laron Sylvester M.D. on 10/11/2024 at 16:08 Approved by: Laron Sylvester M.D. on 10/11/2024 at 16:10
== END ==
PROVIDERS: PCP Family Medicine; Referring Provider Family Medicine; Visit Provider Family Medicine
DX: I50.32 Chronic diastolic (congestive) heart failure (principal); I70.0 Atherosclerosis of aorta
CPT/HCPCS: 71046